=== PATIENT | male | born 1960 | race Caucasian/White ===

== ENCOUNTER 2024-09-18 10:01 | Inpatient (IN) | payer OTHER, SELFPAY ==
[2024-09-18] VITALS (22 sets, daily range): BP systolic 113–152; BP diastolic 62–124; PULSE 109–140; RESP 16–24; TEMP 36.8–38.2; O2SAT 92–98; BMI 35.7; BMI 34.7
--- NOTE | 2024-09-18 10:26 | EX.ED.DYSGE1 ---
HPI History of Present Illness Chief Complaint: Fever Detail of Chief Complaint: Fever and abdominal pain Informant: patient and spouse/S.O. Onset/Context/Timing Current Severity: 08/16 Narrative Narrative: Patient presents to the emergency department with complaint of a fever that started initially 5 days ago. He is just not felt well. Yesterday started with abdominal pain after eating some grapes and some dry cereal. Pain seems to be mostly right upper and right lower quadrant. He has had prior appendectomy. No history of diverticulitis. He called his primary care physician who advised him to be seen in the emergency department for evaluation. He denies urinary symptoms. Patient's had some mild nausea but no vomiting and no diarrhea. He has decreased appetite. PFSH PFSH Home Medications ?Medication ?Instructions ?Recorded ?Last Taken ?Type NK 09/18/24 Unknown History Allergy/AdvReac Type Severity Reaction Status Date / Time No Known Allergies Allergy Verified 09/18/24 10:50 Surgical History (Updated 09/18/24 @ 10:48 by Jacinda Silva) History of appendectomy Social History Smoking Status: Never smoker ROS ROS ED Review of Systems ROS Unobtainable: other Constitutional Constitutional ED: Reports fever(s) and lethargy; Denies chills, sweats or weight loss Eyes Eyes: Denies blurry vision, change in vision or diplopia ENT ENT ED: Denies rhinorrhea or sore throat Cardiovascular Cardiovascular: Denies chest pain, orthopnea or racing heartbeat Respiratory/Chest Respiratory/Chest: Denies cough, dyspnea, dyspnea on exertion, orthopnea or sputum Gastrointestinal Gastrointestinal: Reports abdominal pain and nausea; Denies diarrhea or vomiting Genitourinary Genitourinary ED: Denies dysuria, hematuria or urinary frequency Musculoskeletal Musculoskeletal: Denies arthralgias, back pain, myalgias or neck pain Integumentary Denies abscess, Abrasions or rash Neurologic Neurologic: Denies headache(s) or weakness Psychiatric Psychiatric: Denies anxiety, depression or suicidal thoughts Endocrine Endocrinology: Denies polydipsia, polyphagia or polyuria Hematologic/Lymphatic Hematologic/Lymphatic: Denies easy bleeding, easy bruising or lymphadenopathy Allergic/Immunologic Allergic/Immunologic ED: Denies mouth swelling, tongue swelling or urticaria EXAM Physical Exam Const Vital Signs: 09/18/24 10:02 09/18/24 10:48 09/18/24 12:04 Temperature 99.9 F H 99.7 F H Temperature Source Oral Oral Pulse Rate 124 H 136 H Respiratory Rate 16 19 H Respiratory Effort Normal Respiratory Pattern Normal Blood Pressure 137/105 H 113/62 Blood Pressure Mean 115 79 Pulse Ox 95 93 Oxygen Delivery Method Room Air Room Air 09/18/24 12:11 09/18/24 13:00 09/18/24 13:17 Temperature 99.7 F H Temperature Source Oral Pulse Rate 137 H 140 H 125 H Respiratory Rate 18 20 H Respiratory Effort Respiratory Pattern Blood Pressure 144/98 H 140/73 H Blood Pressure Mean 113 95 Pulse Ox 93 98 Oxygen Delivery Method Room Air 09/18/24 13:53 09/18/24 14:00 09/18/24 14:16 Temperature 100.7 F H 100.7 F H 100.7 F H Temperature Source Oral Oral Pulse Rate 138 H 121 H 121 H Respiratory Rate 24 H 16 16 Respiratory Effort Respiratory Pattern Blood Pressure 144/98 H 136/70 H 136/70 H Blood Pressure Mean 113 92 92 Pulse Ox 93 95 95 Oxygen Delivery Method Room Air 09/18/24 15:00 Temperature Temperature Source Pulse Rate 129 H Respiratory Rate 22 H Respiratory Effort Respiratory Pattern Blood Pressure 136/70 H Blood Pressure Mean 92 Pulse Ox 95 Oxygen Delivery Method Positive well nourished and well developed General Appearance ED: well developed and NAD HEENT Reports TM's clear and moist mucous membranes normocephalic and atraumatic; Negative for trauma or tenderness Tympanic Membrane ED: Yes TM's clear Eyes PERRL and EOMs intact bilaterally General Eye ED: Negative for pale conjunctiva or scleral icterus Neck no lymphadenopathy, supple and no JVD General: Negative for tenderness Chest Wall inspection of chest normal and palpation of chest normal Chest: Negative for tenderness Resp normal respiratory effort and clear to auscultation bilaterally Effort and Inspection: Negative for respiratory distress or pain with movement Auscultation: Negative for rhonchi, wheezes or diminished lung sounds Cardio regular rate, regular rhythm, S1 normal heart sound, S2 normal heart sound and no murmurs Peripheral Pulses: pulses 2+ throughout GI normal to inspection, nondistended, normoactive bowel sounds, soft to palpation, non-distended and no masses GI Narrative: Tenderness palpation over the right upper quadrant with some guarding. He had a positive Jamison sign. Patient also with some diffuse tenderness over the right lower quadrant. No significant tenderness over the left lower quadrant or left upper quadrant. Back/Spine no CVA tenderness and no thoracic nor lumbar tenderness Extremity normal to inspection General Extremety ED: Negative for edema General Extremity: Negative for edema Neuro oriented x3, CN's II-XII intact bilaterally, no sensory deficits noted and gait normal Sensorium / Orientation: awake, alert, oriented to person, oriented to place and oriented to time Motor Exam: strength 5/5 throughout and strength abnormal Psych mental status grossly normal Skin no rashes or lesions noted and no wounds MDM MDM MDM Narrative Medical decision making narrative: Patient presents with fever and now abdominal pain. History of prior appendectomy. In the differential would be gallbladder disease versus other acute infectious process of the abdomen. UTI also in the differential. IV line established. He did not want thing for pain. He will be given normal saline. Will obtain labs and imaging including CT scan with IV contrast to evaluate further. CT scan of the abdomen pelvis was unremarkable. CBC with differential obtained showed white count of 4.8 with hemoglobin 16.0 and platelet count of 190. Chemistries unremarkable. Lactate was normal at 1.0. LFTs showed a slightly elevated AST of 42 with ALT of 44 and alk phos of 80. Lipase was normal at 27. Urinalysis was normal. EKG obtained on arrival for tachycardia showed a atrial fibrillation with ventricular rate of [address] changes. Troponin was normal at 18. Patient was given Cardizem 20 mg IV bolus initially followed by another 25 mg bolus and started on a Cardizem drip. Etiology of his abdominal pain unclear and given location to the right upper quadrant I obtained a ultrasound of the gallbladder which essentially was unremarkable. Blood cultures also were sent and will be pending results. Will discuss case with hospitalist to evaluate patient for admission for the A-fib RVR new onset. Also fever of unknown etiology. Etiology unclear for his abdominal pain. Lab Data Attestation: I reviewed the patient's lab results. Labs: Laboratory Results - last 24 hr 09/18/24 09/18/24 09/18/24 10:30 10:40 10:40 WBC 4.8 RBC 5.61 Hgb 16.0 Hct 46.7 MCV 83.2 MCH 28.5 MCHC 34.3 RDW Std Deviation 40.5 RDW Coeff of Abel 13.3 Plt Count 190 MPV 9.8 Immature Gran % (Auto) 0.400 Neut % (Auto) 66.7 Lymph % (Auto) 14.3 L [place] % (Auto) 17.6 H Eos % (Auto) 0.4 Baso % (Auto) 0.6 Absolute Neuts (auto) 3.2 Absolute Lymphs (auto) 0.69 L Nucleated RBC % 0 Sodium 134 135 Potassium 3.8 Chloride Carbon Dioxide Anion Gap BUN Creatinine Estim Creat Clear Calc Est GFR (MDRD) Non-Af BUN/Creatinine Ratio Glucose Lactic Acid Calcium Total Bilirubin AST ALT Alkaline Phosphatase Troponin T High Sens Troponin T Hi Sens 2 Hr Total Protein Albumin Globulin Albumin/Globulin Ratio Lipase Urine Color Yellow Urine Clarity Clear Urine pH 5.0 Ur Specific [place] 1.020 Urine Protein 100 H Urine Glucose (UA) Normal Urine Ketones 15 H Urine Occult Blood 10 H Urine Nitrite Negative Urine Bilirubin Negative Urine Urobilinogen Normal Ur Leukocyte Esterase 25 H Urine RBC 0 SEEN Urine WBC 0-5 SEEN Ur Squamous Epith Cells 0 SEEN Urine Bacteria 0 SEEN Urine Mucus 0 SEEN 09/18/24 09/18/24 09/18/24 10:40 10:40 10:40 WBC RBC Hgb Hct MCV MCH MCHC RDW Std Deviation RDW Coeff of Abel Plt Count MPV Immature Gran % (Auto) Neut % (Auto) Lymph % (Auto) [place] % (Auto) Eos % (Auto) Baso % (Auto) Absolute Neuts (auto) Absolute Lymphs (auto) Nucleated RBC % Sodium Potassium 3.9 Chloride 99 100 Carbon Dioxide 22.6 21.5 Anion Gap 13 BUN Creatinine Estim Creat Clear Calc Est GFR (MDRD) Non-Af BUN/Creatinine Ratio Glucose Lactic Acid Calcium Total Bilirubin AST ALT Alkaline Phosphatase Troponin T High Sens Troponin T Hi Sens 2 Hr Total Protein Albumin Globulin Albumin/Globulin Ratio Lipase Urine Color Urine Clarity Urine pH Ur Specific [place] Urine Protein Urine Glucose (UA) Urine Ketones Urine Occult Blood Urine Nitrite Urine Bilirubin Urine Urobilinogen Ur Leukocyte Esterase Urine RBC Urine WBC Ur Squamous Epith Cells Urine Bacteria Urine Mucus 09/18/24 09/18/24 09/18/24 10:40 10:40 10:40 WBC RBC Hgb Hct MCV MCH MCHC RDW Std Deviation RDW Coeff of Abel Plt Count MPV Immature Gran % (Auto) Neut % (Auto) Lymph % (Auto) [place] % (Auto) Eos % (Auto) Baso % (Auto) Absolute Neuts (auto) Absolute Lymphs (auto) Nucleated RBC % Sodium Potassium Chloride Carbon Dioxide Anion Gap 14 BUN 16 16 Creatinine 0.88 0.86 Estim Creat Clear Calc 99.05 Est GFR (MDRD) Non-Af BUN/Creatinine Ratio Glucose Lactic Acid Calcium Total Bilirubin AST ALT Alkaline Phosphatase Troponin T High Sens Troponin T Hi Sens 2 Hr Total Protein Albumin Globulin Albumin/Globulin Ratio Lipase Urine Color Urine Clarity Urine pH Ur Specific [place] Urine Protein Urine Glucose (UA) Urine Ketones Urine Occult Blood Urine Nitrite Urine Bilirubin Urine Urobilinogen Ur Leukocyte Esterase Urine RBC Urine WBC Ur Squamous Epith Cells Urine Bacteria Urine Mucus 09/18/24 09/18/24 09/18/24 10:40 10:40 10:40 WBC RBC Hgb Hct MCV MCH MCHC RDW Std Deviation RDW Coeff of Abel Plt Count MPV Immature Gran % (Auto) Neut % (Auto) Lymph % (Auto) [place] % (Auto) Eos % (Auto) Baso % (Auto) Absolute Neuts (auto) Absolute Lymphs (auto) Nucleated RBC % Sodium Potassium Chloride Carbon Dioxide Anion Gap BUN Creatinine Estim Creat Clear Calc 101.35 Est GFR (MDRD) Non-Af 96 96 BUN/Creatinine Ratio 18.1 18.6 Glucose 147 H Lactic Acid Calcium Total Bilirubin AST ALT Alkaline Phosphatase Troponin T High Sens Troponin T Hi Sens 2 Hr Total Protein Albumin Globulin Albumin/Globulin Ratio Lipase Urine Color Urine Clarity Urine pH Ur Specific [place] Urine Protein Urine Glucose (UA) Urine Ketones Urine Occult Blood Urine Nitrite Urine Bilirubin Urine Urobilinogen Ur Leukocyte Esterase Urine RBC Urine WBC Ur Squamous Epith Cells Urine Bacteria Urine Mucus 09/18/24 09/18/24 09/18/24 10:40 10:40 13:15 WBC RBC Hgb Hct MCV MCH MCHC RDW Std Deviation RDW Coeff of Abel Plt Count MPV Immature Gran % (Auto) Neut % (Auto) Lymph % (Auto) [place] % (Auto) Eos % (Auto) Baso % (Auto) Absolute Neuts (auto) Absolute Lymphs (auto) Nucleated RBC % Sodium Potassium Chloride Carbon Dioxide Anion Gap BUN Creatinine Estim Creat Clear Calc Est GFR (MDRD) Non-Af BUN/Creatinine Ratio Glucose 145 H Lactic Acid 1.0 Calcium 8.5 8.5 Total Bilirubin 0.58 AST 42 H ALT 44 Alkaline Phosphatase 80 Troponin T High Sens 18 Troponin T Hi Sens 2 Hr 17 Total Protein 7.2 Albumin 3.9 Globulin 3.3 Albumin/Globulin Ratio 1.2 Lipase 27 Urine Color Urine Clarity Urine pH Ur Specific [place] Urine Protein Urine Glucose (UA) Urine Ketones Urine Occult Blood Urine Nitrite Urine Bilirubin Urine Urobilinogen Ur Leukocyte Esterase Urine RBC Urine WBC Ur Squamous Epith Cells Urine Bacteria Urine Mucus Radiography Diagnostic Testing: Clinical Impression(s) from Imaging Studies Abdomen/Pelvis CT 09/18/24 12:00 IMPRESSION: Fatty infiltration of the liver. Coronary artery calcification. Small right inguinal hernia containing fat. No evidence of ureteral obstruction. OVERALL FINAL ASSESSMENT: . Reading Location: [facility] Gallbladder Ultrasound 09/18/24 12:29 IMPRESSION: Hepatomegaly and fatty infiltration of the liver. Reading Location: [facility] Chest X-Ray 09/18/24 14:33 IMPRESSION: Cardiomegaly. The lungs are clear. Reading Location: [facility] 1 view chest x-ray obtained interpreted by myself no evidence of infiltrate or pneumothorax or acute disease process. Radiology in agreement. EKG Initial EKG: Attestation: I personally reviewed and interpreted this EKG as follows: Comments: Atrial fibrillation with ventricular rate of [address] changes Discharge Plan Dx/Rx/DC Orders Clinical Impression: Atrial fibrillation with RVR, Fever, Abdominal pain Disposition Disposition: Acute Care Hospital [facility]
[2024-09-18 10:36] LABS: Bacteria 0 SEEN /hpf (None Seen); Mucous, Urine 0 SEEN /hpf (<or=2+); Red Blood Cells-Urine 0 SEEN /hpf (0-5); Squamous Epithelial Cells - UA 0 SEEN /hpf (0-5)
[2024-09-18 10:39] LABS: Color, Urine Yellow (Yellow); Glucose, Dipstick Normal (Normal); Ketone-Dipstick 15 mg/dl (Negative); Leukocyte Esterase-Dipstick 25 /ul (Negative); Nitrite-Dipstick Negative (Negative); Occult Blood-Urine 10 /ul (Negative); Protein-Dipstick 100 mg/dl (Negative); Urine Bilirubin Dipstick Negative (Negative); Urine Clarity Clear (Clear); Urine Urobilinogen Normal (Normal)
[2024-09-18] MEDS: 0.9% Normal Saline (1000mL) 1,000 ML 150 ML IV (10:45)
[2024-09-18 10:48] LABS: White Blood Cells 0-5 SEEN /hpf (0-5)
[2024-09-18 11:01] LABS: Absolute Lymphocyte Count 0.69 X10^3/uL (0.83-4.51); Absolute Neutrophil Count 3.2 X10^3/uL (2.0-7.7); Basophil# 0.03 X10^3/uL; Basophil% 0.6 % (0-1); Eosinophil# 0.02 X10^3/uL; Eosinophils% 0.4 % (0-5); Hematocrit 46.7 % (40-54); Lymphocyte # 0.69 X10^3/ul (0.83-4.51); Lymphocyte % 14.3 % (19-41); Mean Corp Hgb Conc 34.3 g/dL (32-36); Mean Corpuscular Hgb 28.5 pg (27.0-32.0); Mean Corpuscular Volume 83.2 fL (80-94); Mean Platelet Vol. 9.8 fl (6.2-12.0); Monocyte# 0.85 X10^3/uL; Monocyte% 17.6 % (0-10); NRBC Flagged by Analyzer 0 % (0-5); Neutrophil # 3.21 X10^3/uL (2.7-7.7); Neutrophil % 66.7 % (47-70); Platelet Count 190 K/mm3 (150-450); RBC Distribution Width CV 13.3 % (11.6-14.6); RBC Distribution Width SD 40.5 fl (35.1-43.9); Red Blood Count 5.61 M/mm3 (4.6-6.2); White Blood Count 4.8 K/mm3 (4.4-11.0)
[2024-09-18] MEDS: dilTIAZem 25 MG/5 ML Vial 20 MG IV BOLUS (11:05)
[2024-09-18 11:29] LABS: ALB/GLOB Ratio 1.2 RATIO (0.9-2.4); AST(SGOT) 42 U/L (<=37); Alanine Aminotransfer ALT/SGPT 44 U/L (<=46); Albumin, Serum 3.9 g/dL (3.4-4.8); Alkaline Phosphatase 80 U/L (40-129); Anion Gap 13 (5-15); BUN 16 mg/dL (4-19); BUN/Creat Ratio 18.1 RATIO (10-20); Calcium,Total 8.5 mg/dL (7.6-11.0); Carbon Dioxide 22.6 mmol/L (21.0-32.0); Chloride 99 mmol/L (98-108); Creatinine, Serum 0.88 mg/dL (0.70-1.20); EST Glomerular Filtration Rate 96 (>60); Estimated Creatinine Clearance 99.05 ml/min (50-250); Globulin 3.3 g/dL (2.2-4.2); Glucose 147 mg/dL (70-99); Lipase 27 U/L (13-75); Potassium 3.8 mmol/L (3.3-5.1); Protein, Total 7.2 g/dL (5.9-8.4); Sodium Level 134 mmol/L (133-145); Total Bilirubin 0.58 mg/dL (0.00-1.30)
--- NOTE | 2024-09-18 12:00 | CT_ITS ---
PROCEDURE: ABDOMEN/PELVIS WITH CONTRAST 09/18/2024 REASON FOR EXAM: ABDOMINAL PAIN, RLQ AND RUQ TECHNIQUE: Abdomen and pelvis CT with intravenous contrast. Coronal and Sagittal reconstruction series were provided. PATIENT PREPARATION: Per protocol ORAL CONTRAST TYPE: Gastrografin. CONTRAST: Isovue-300 VOLUME: 100 mL One or more dose reduction techniques were used (e.g., Automated exposure control, adjustment of the mA and/or kV according to patient size, use of iterative reconstruction technique. RADIATION DOSE SUMMARY: CTDlvol: 20 mGy DLP: 1328.49 mGycm COMPARISON: None FINDINGS: Lung bases: Mild dependent atelectasis. Coronary artery calcification. Minimal anterior pericardial thickening. Liver: Diffuse fatty infiltration. Gallbladder: Unremarkable. Spleen: Normal size. Pancreas: Normal size without evidence of mass surrounding inflammation or ductal dilation. Adrenals: Unremarkable Kidneys: Normal renal sizes. No hydronephrosis. Bladder: Unremarkable. Prostatic calcification. Small right inguinal hernia containing fat. Bowel: Colonic diverticulosis without diverticulitis. Appendix: Unremarkable. Lymph nodes: Tiny retroperitoneal lymph nodes. Small umbilical hernia containing fat. Vasculature: Mild diffuse atherosclerotic calcifications are noted. Peritoneum / Retroperitoneum: No evidence of ascites. Bones: Disc space narrowing and degeneration with subchondral sclerosis at the L2-L3 level. CT/Abdomen/Pelvis WITH Contrast IMPRESSION: Fatty infiltration of the liver. Coronary artery calcification. Small right inguinal hernia containing fat. No evidence of ureteral obstructio n. OVERALL FINAL ASSESSMENT: . Reading Location: [place] [id number]
[2024-09-18] MEDS: dilTIAZem 25 MG/5 ML Vial IV BOLUS (12:12)
--- NOTE | 2024-09-18 12:29 | US_ITS ---
PROCEDURE: GALLBLADDER 09/18/2024 REASON FOR EXAM: ABDOMINAL PAIN , FEVER COMPARISON: Prior CT scan done earlier in the day. FINDINGS: Liver: Diffusely echogenic suggesting fatty infiltration. Hepatomegaly. The liver measures 19.3 cm. Gallbladder: No stones, sludge, wall thickening or tenderness. Common bile duct: Normal measuring 3.8 mm . Pancreas: Normal Other: Visualized portions of the right kidney are unremarkable. No right upper quadrant ascites. US/Gallbladder IMPRESSION: Hepatomegaly and fatty infiltration of the liver. Reading Location: [place] [id number]
[2024-09-18 12:58] LABS: Anion Gap 14 (5-15); BUN 16 mg/dL (4-19); BUN/Creat Ratio 18.6 RATIO (10-20); Calcium,Total 8.5 mg/dL (7.6-11.0); Carbon Dioxide 21.5 mmol/L (21.0-32.0); Chloride 100 mmol/L (98-108); Creatinine, Serum 0.86 mg/dL (0.70-1.20); EST Glomerular Filtration Rate 96 (>60); Estimated Creatinine Clearance 101.35 ml/min (50-250); Glucose 145 mg/dL (70-99); Potassium 3.9 mmol/L (3.3-5.1); Sodium Level 135 mmol/L (133-145); Troponin T High Sensitivity 18 ng/L (<=22)
[2024-09-18] MEDS: Diltiazem 125 MG in Dextrose 5%-Water (100mL Bag) 100 ML IV (13:17)
[2024-09-18 13:46] LABS: Troponin T High Sens 2 HR 17 ng/L (<=22)
--- NOTE | 2024-09-18 13:54 | PCM.HP.STD ---
HPI - General General Date of Admission: 09/18/24 Date of Service: 09/18/24 Chief Complaint: Fever/chills and abdominal pain HPI Narrative GISELA KNOX, is a 64 M who presented to [facility] ED on 09/18/2024 with fever/chills and abdominal pain. Patient has no significant past medical history. 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 Noted that he initially developed fevers and chills about 4 to 5 days ago. Since then he generally has not felt very well. Yesterday he began to have abdominal pain after eating. He noted that the pain was somewhat localized to his right upper quadrant but was also fairly diffuse. Does have history of prior appendectomy. Called his PCP who recommended coming to the ED for further evaluation. In the ED he was found to be in A-fib with RVR with heart rate in the 130s to 140s. He denied any palpitations. No prior history of A-fib. Was also found to be febrile to 100.7 F. CBC and BMP were fairly benign. BNP was elevated at 2493. Troponins negative x 2. CT abdomen pelvis showed a small right inguinal hernia with no evidence of obstruction, fatty infiltration of the liver, no other concerning findings. Gallbladder ultrasound was negative. Chest x-ray showed cardiomegaly but was otherwise unremarkable. He was breathing comfortably on room air at rest with saturations in the mid 90s. Denied any lower extremity swelling. Given these findings, he was given a bolus of IV Cardizem and started on Cardizem drip. Hospitalist was then contacted for admission. I saw the patient at bedside in the ED, is present. Patient was mildly fatigued and flushed appearing but otherwise laying back comfortably in bed, conversing normally and in no acute distress. Patient is very pleasant and mentally sharp. Notes that he feels about the same as when he came into the ED. Continues to report mild abdominal pain and feeling hot. Continues to deny palpitations. He did note that he had a loose bowel movement shortly before coming to the ED but otherwise has been having normal bowel movements. No other acute concerns at this time. PFSH Home Medications ?Medication ?Instructions ?Recorded ?Last Taken ?Type NK 09/18/24 Unknown History Allergy/AdvReac Type Severity Reaction Status Date / Time No Known Allergies Allergy Verified 09/18/24 10:50 Surgical History (Updated 09/18/24 @ 10:48 by Jacinda Silva) History of appendectomy Social History Smoking Status: Never smoker ROS Constitutional Constitutional: Reports chills, fatigue and fever(s); Denies weakness Eyes Eyes: Denies change in vision Cardiovascular Cardiovascular: Denies chest pain, dyspnea on exertion, edema, lightheadedness or palpitations Respiratory/Chest Respiratory/Chest: Denies cough, productive cough, shortness of breath at rest, shortness of breath with exertion or wheezing Gastrointestinal Gastrointestinal: Reports abdominal pain and diarrhea; Denies constipation, nausea or vomiting Genitourinary Genitourinary: Denies dysuria Musculoskeletal Musculoskeletal: Denies arthralgias or myalgias Neurologic Neurologic: Denies dizziness, focal weakness or headache(s) Vital Signs Vital Signs Vital Signs: 09/18/24 10:02 09/18/24 10:48 09/18/24 12:04 Temperature 99.9 F H 99.7 F H Temperature Source Oral Oral Pulse Rate 124 H 136 H Respiratory Rate 16 19 H Respiratory Effort Normal Respiratory Pattern Normal Blood Pressure 137/105 H 113/62 Blood Pressure Mean 115 79 Pulse Ox 95 93 Oxygen Delivery Method Room Air Room Air 09/18/24 12:11 09/18/24 13:00 09/18/24 13:17 Temperature 99.7 F H Temperature Source Oral Pulse Rate 137 H 140 H 125 H Respiratory Rate 18 20 H Respiratory Effort Respiratory Pattern Blood Pressure 144/98 H 140/73 H Blood Pressure Mean 113 95 Pulse Ox 93 98 Oxygen Delivery Method Room Air 09/18/24 13:53 Temperature 100.7 F H Temperature Source Oral Pulse Rate 138 H Respiratory Rate 24 H Respiratory Effort Respiratory Pattern Blood Pressure 144/98 H Blood Pressure Mean 113 Pulse Ox 93 Oxygen Delivery Method Weight Weight: 106.594 kg Body Mass Index (BMI) 35.7 Physical Exam Const alert, oriented x3 and no apparent distress Constitutional Narrative: Pleasant upper middle-aged male, class II obesity, mild fatigued and flushed appearing, otherwise laying back comfortably in bed, conversing normally, in no acute distress. General Appearance: cooperative and comfortable HEENT normocephalic, head/scalp atraumatic, hearing grossly normal bilaterally, nasal mucous membranes and turbinates normal and moist oral mucous membranes Eyes PERRL, EOMs intact bilaterally and conjunctivae normal Neck full ROM Chest inspection of chest normal Resp normal respiratory effort, normal air movement, no use of accessory muscles and clear to auscultation bilaterally Cardio no murmurs and peripheral pulses 2+ throughout Cardio Narrative: A-fib with RVR. GI GI Narrative: Mild diffuse tenderness to palpation but abdomen otherwise soft and nondistended. Back/Spine normal ROM Extremity normal to inspection, full ROM and no pedal edema Skin no rashes or lesions noted Psych mental status grossly normal Results Lab / Micro Data 09/18/24 10:40 09/18/24 10:40 Labs: Laboratory Results - last 24 hr 09/18/24 10:30: Urine Color Yellow, Urine Clarity Clear, Urine pH 5.0, Ur Specific Dawson 1.020, Urine Protein 100 H, Urine Glucose (UA) Normal, Urine Ketones 15 H, Urine Occult Blood 10 H, Urine Nitrite Negative, Urine Bilirubin Negative, Urine Urobilinogen Normal, Ur Leukocyte Esterase 25 H, Urine RBC 0 SEEN, Urine WBC 0-5 SEEN, Ur Squamous Epith Cells 0 SEEN, Urine Bacteria 0 SEEN, Urine Mucus 0 SEEN 09/18/24 10:40: WBC 4.8, RBC 5.61, Hgb 16.0, Hct 46.7, MCV 83.2, MCH 28.5, MCHC 34.3, RDW Std Deviation 40.5, RDW Coeff of Abel 13.3, Plt Count 190, MPV 9.8, Immature Gran % (Auto) 0.400, Neut % (Auto) 66.7, Lymph % (Auto) 14.3 L, [place] % (Auto) 17.6 H, Eos % (Auto) 0.4, Baso % (Auto) 0.6, Absolute Neuts (auto) 3.2, Absolute Lymphs (auto) 0.69 L, Nucleated RBC % 0, Sodium 134 09/18/24 10:40: Sodium 135, Potassium 3.8 09/18/24 10:40: Potassium 3.9, Chloride 99 09/18/24 10:40: Chloride 100, Carbon Dioxide 22.6 09/18/24 10:40: Carbon Dioxide 21.5, Anion Gap 13 09/18/24 10:40: Anion Gap 14, BUN 16 09/18/24 10:40: BUN 16, Creatinine 0.88 09/18/24 10:40: Creatinine 0.86, Estim Creat Clear Calc 99.05 09/18/24 10:40: Estim Creat Clear Calc 101.35, Est GFR (MDRD) Non-Af 96 09/18/24 10:40: Est GFR (MDRD) Non-Af 96, BUN/Creatinine Ratio 18.1 09/18/24 10:40: BUN/Creatinine Ratio 18.6, Glucose 147 H 09/18/24 10:40: Glucose 145 H, Lactic Acid 1.0, Calcium 8.5 09/18/24 10:40: Calcium 8.5, Total Bilirubin 0.58, AST 42 H, ALT 44, Alkaline Phosphatase 80, Troponin T High Sens 18, Total Protein 7.2, Albumin 3.9, Globulin 3.3, Albumin/Globulin Ratio 1.2, Lipase 27 09/18/24 13:15: Troponin T Hi Sens 2 Hr 17 Micro: Microbiology 09/18/24 12:21 Mucosa - Nose SARS-CoV-2, Influenza & RSV (PCR) - Final Imaging Radiology Impression Abdomen/Pelvis CT 09/18/24 12:00 IMPRESSION: Fatty infiltration of the liver. Coronary artery calcification. Small right inguinal hernia containing fat. No evidence of ureteral obstruction. OVERALL FINAL ASSESSMENT: . Reading Location: [facility] Gallbladder Ultrasound 09/18/24 12:29 IMPRESSION: Hepatomegaly and fatty infiltration of the liver. Reading Location: [facility] Assessment & Plan Assessment/Plan (1) Fever: (2) Abdominal pain: (3) Atrial fibrillation with RVR: PLAN: Plan Patient is a 64-year-old male who presented to [facility] ED on 09/18/2024 with fever/chills and abdominal pain. 1. Fever of unknown origin with abdominal pain ? Admit under inpatient status to PCU. Patient with low-grade fever to 100.7 F on admit and reported fevers at home. WBC count normal, lactate normal, no other concerning lab findings. Unclear source of infection at this time. Chest x-ray unremarkable. CT abdomen pelvis with no concerning findings. UA unremarkable. Has mild diffuse abdominal pain for unclear reason. Did note one episode of loose stool on day of admission but no episodes since then. Blood cultures ordered. Respiratory PCR panel sent. Stool PCR sample ordered. Will treat with broad-spectrum IV antibiotics for now. Follow-up infectious workup. 2. New onset A-fib with RVR with concern for new onset heart failure ? In new onset A-fib with RVR on admit with rate in the 130s to 140s. BNP elevated at 2493. Chest x-ray showed cardiomegaly but no pleural effusions or significant pulmonary edema. Given bolus of IV Cardizem and started on Cardizem drip in the ED without much improvement. Will start p.o. Lopressor 25 mg twice daily. Given 1 dose of IV digoxin in the ED, will monitor response. [id number] score of only 2 for age and diabetes history. However, given patient does not have palpitations and elevated BNP I have concern that he has been in A-fib for some time without knowing so we will anticoagulate at this time. Given dose of therapeutic Lovenox in the ED and will start on Eliquis. Echo ordered. Low threshold to consult cardiology if needed. 3. Class II obesity ? BMI 35 on admit. Complicates hospital course, care and prognosis. 4. New onset mild type 2 diabetes mellitus ? A1c 6.9% on admit. Glucose 145. Will hold on glucose checks and insulin orders for now. Will need close outpatient follow-up. DVT prophylaxis: Not indicated, on Eliquis CODE STATUS: Full code, verified Expected disposition: Home, TBD Total clinical time spent by myself addressing the patient's medical issues, reviewing all the data, and collaborating with patient's care team: 75 minutes. Charges/Coding Visit Charges Inpatient E&M: 77738 Init Hosp L3
--- NOTE | 2024-09-18 13:58 | ECHOCS_ITS ---
Reason For Study Reason For Study: Afib, Aflutter Procedure This was a 2D Doppler, Color Flow transthoracic echocardiogram. Contrast injection was performed. Exam performed portable in patient room. Left Ventricle Left ventricle appears dilated. Left ventricular systolic function 35% This is limited due to atrial fibrillation. Right Ventricle Normal right ventricle. Normal systolic function. Atria The left atrium is dilated. Normal right atrium. Mitral Valve The mitral valve is structurally normal. No prolapse or stenosis seen. Mild (1+) mitral valve insufficiency. Tricuspid Valve Mild tricuspid valve insufficiency. Pulmonary artery systolic pressure is 939 mmHg. Aortic Valve Aortic valve is tricuspid. There is no aortic stenosis. Aortic valve is mildly calcified. Pulmonic Valve Trivial pulmonic valve insufficiency. Great Vessels Aortic root dimensions within normal limits. IVC measures 1.9 cm. Pericardium/Pleural No pericardial effusion. Medication Diluted definity 3ml given slow IV push to enhance endocardial definition. MMode/2D Measurements & Calculations LVIDd: 5.4 cm IVSd: 1.2 cm Ao root diam: 3.4 cm LVIDs: 4.3 cm LVPWd: 1.2 cm FS: 20.3 % LAV(MOD-bp): 52.6 ml LVAd ap4: 33.6 cm2 LVAd ap2: 34.2 cm2 LAV(MOD-bp) Indexed: 24.0 ml/m2 LVLd ap4: 7.8 cm LVLd ap2: 8.1 cm LAV(MOD-sp2): 48.1 ml EDV(MOD-sp4): 120.0 ml EDV(MOD-sp2): 119.9 ml LAV(MOD-sp4): 57.9 ml EDV(sp4-el): 122.3 ml EDV(sp2-el): 122.6 ml LVAs ap4: 25.8 cm2 LVAs ap2: 26.8 cm2 LVLs ap4: 7.3 cm LVLs ap2: 7.5 cm ESV(MOD-sp4): 77.4 ml ESV(MOD-sp2): 80.9 ml ESV(sp4-el): 77.5 ml ESV(sp2-el): 81.6 ml EF(MOD-sp4): 35.5 % EF(MOD-sp2): 32.6 % EF(sp4-el): 36.7 % SV(MOD-sp4): 42.7 ml SV(MOD-sp2): 39.0 ml SV(sp4-el): 44.9 ml SI(MOD-sp4): 19.5 ml/m2 SI(MOD-sp2): 17.8 ml/m2 LA A4 area: 20.4 cm2 LA dimension(2D): 4.6 cm RA A4 area: 11.7 cm2 TAPSE: 2.5 cm Doppler Measurements & Calculations MV E max david: 115.6 cm/sec Lat Peak E' David: 13.4 cm/sec Med Peak E' David: 14.4 cm/sec E/E' lat: 8.6 E/E' med: 8.1 Ao V2 max: 149.6 cm/sec LV V1 max: 116.9 cm/sec PA V2 max: 94.9 cm/sec Ao max P.3 mmHg LV V1 max P.6 mmHg Ao V2 mean: 109.7 cm/sec LV V1 mean P.6 mmHg Ao mean P.4 mmHg LV V1 mean: 91.7 cm/sec Ao V2 VTI: 19.5 cm LV V1 VTI: 17.1 cm AV (velocity ratio): 0.88 TR max david: 281.2 cm/sec TR max P.6 mmHg ECHO/Echo Complete W/ Contrast Interpretation Summary Left ventricular systolic function 35% This is limited due to atrial fibrillation Left ventricle appears dilated The left atrium is dilated Mild (1+) mitral valve insufficiency. Mild tricuspid valve insufficiency. Aortic valve is mildly calcified Ordering Physician: James Crum Referring Physician: Andi Blanton Performed By: Gaby DAVIS RDCS, Isabel and Student
--- NOTE | 2024-09-18 14:33 | RAD_ITS ---
PROCEDURE: CHEST 1 VIEW (PORTABLE) 09/18/2024 REASON FOR EXAM: FEVER TECHNIQUE: Frontal view of the chest. COMPARISON: None FINDINGS: Hardware: EKG electrodes are seen. Heart: Heart size is moderately enlarged. Unfolding of the thoracic aorta. Lungs: The lungs are clear. Bones: Degenerative changes are identified within the thoracic spine. Other: RAD/Chest 1 View (Portable) IMPRESSION: Cardiomegaly. The lungs are clear. Reading Location: [place] [id number]
[2024-09-18 15:23] LABS: Hemoglobin A1c 6.9 % (<=5.6)
[2024-09-18 15:46] LABS: Troponin T High Sens 4 HR 16 ng/L (<=22)
[2024-09-18 15:59] LABS: Magnesium 2.1 mg/dL (1.5-2.2); Phosphorus 2.6 mg/dL (2.7-4.5); Pro- Brain NATRIURETIC PEPTIDE 2493 pg/mL (<=900)
[2024-09-18] MEDS: Vancomycin HCl 2,000 MG in 0.9% Normal Saline (500mL Bag) 500 ML 250 MG IV (19:59)
[2024-09-18] MEDS: Metoprolol Tartrate 25 MG Tablet PO ×2 (20:06→23:07)
[2024-09-18] MEDS: APIXABAN 5 MG TABLET PO (20:08)
--- NOTE | 2024-09-18 20:35 | PCM.RX.CS ---
Consult Antibiotic Management Pharmacy has been consulted to manage selected antibiotic: Vancomycin Type of Intervention Type of Consult: New start Suspected Infection Suspected Infection: Sepsis Prior Doses of Antibiotics Prior Doses of Antibiotics Received/Current Regimen: Vancomycin 2000 mg IV x 1 given 09/18/24 @ 1959 Labs Labs: Sodium 134 mmol/L (133-145) 09/18/24 10:40 Sodium 135 mmol/L (133-145) 09/18/24 10:40 Potassium 3.8 mmol/L (3.3-5.1) 09/18/24 10:40 Potassium 3.9 mmol/L (3.3-5.1) 09/18/24 10:40 Chloride 99 mmol/L (98-108) 09/18/24 10:40 Chloride 100 mmol/L (98-108) 09/18/24 10:40 Carbon Dioxide 21.5 mmol/L (21.0-32.0) 09/18/24 10:40 Carbon Dioxide 22.6 mmol/L (21.0-32.0) 09/18/24 10:40 Anion Gap 13 (5-15) 09/18/24 10:40 Anion Gap 14 (5-15) 09/18/24 10:40 BUN 16 mg/dL (4-19) 09/18/24 10:40 BUN 16 mg/dL (4-19) 09/18/24 10:40 Creatinine 0.86 mg/dL (0.70-1.20) 09/18/24 10:40 Creatinine 0.88 mg/dL (0.70-1.20) 09/18/24 10:40 Est GFR (MDRD) Non-Af 96 (>60) 09/18/24 10:40 Est GFR (MDRD) Non-Af 96 (>60) 09/18/24 10:40 BUN/Creatinine Ratio 18.1 RATIO (10-20) 09/18/24 10:40 BUN/Creatinine Ratio 18.6 RATIO (10-20) 09/18/24 10:40 Glucose 145 mg/dL (70-99) H 09/18/24 10:40 Glucose 147 mg/dL (70-99) H 09/18/24 10:40 Microbiology Microbiology: Microbiology 09/18/24 12:21 Mucosa - Nose SARS-CoV-2, Influenza & RSV (PCR) - Final Dosing Weight Weight used for dosin kg Estimated Creatinine Clearance Estimated Creatinine Clearance: ~ 101 Goal Trough Goal Trough: 15-20 mcg/mL Pharmacy Plan for Drug Dosing Pharmacy Plan for Drug Dosing: Vancomycin 2000 mg IV x 1 followed by 1250 mg Q8H. Pharmacy Service will continue to monitor and adjust dosing as required. Follow-Up Labs Follow-Up Labs: Trough: Vancomycin Date/Time Labs Ordered Labs to be done on [date and time ordered]: 09/19/24 @ 1930
[2024-09-18] MEDS: Furosemide 40 MG/4 ML Vial IV (21:10)
[2024-09-18] MEDS: Piperacil/Tazobactam 3.375 GM in 0.9% Normal Saline (50mL MB+) 50 ML IV (21:11)
[2024-09-18] MEDS: 0.9% Normal Saline (250mL Bag) 250 ML 15 ML IV (21:11)
[2024-09-18] MEDS: Digoxin 250 MCG/ML Ampul IV (21:16)
[2024-09-18] MEDS: 0.9% Saline Lock 10 ML Syringe IV (21:19)
[2024-09-18] MEDS: Diltiazem 125 MG in Dextrose 5%-Water (100mL Bag) 100 ML 15 MG IV (23:05)
[2024-09-19] VITALS (31 sets, daily range): BP systolic 98–146; BP diastolic 58–95; PULSE 101–130; RESP 18–28; TEMP 37.1–37.2; O2SAT 88–96; BMI 34.8
[2024-09-19] MEDS: Vancomycin HCl 1,250 MG in 0.9% Normal Saline (250mL Bag) 250 ML 167 MG IV ×3 (04:11→20:57)
[2024-09-19 05:08] LABS: Hematocrit 41.8 % (40-54); Hemoglobin 14.3 g/dL (13.0-16.5); Mean Corp Hgb Conc 34.2 g/dL (32-36); Mean Corpuscular Hgb 28.4 pg (27.0-32.0); Mean Corpuscular Volume 83.1 fL (80-94); Mean Platelet Vol. 9.6 fl (6.2-12.0); Platelet Count 192 K/mm3 (150-450); RBC Distribution Width CV 13.4 % (11.6-14.6); RBC Distribution Width SD 40.7 fl (35.1-43.9); Red Blood Count 5.03 M/mm3 (4.6-6.2); White Blood Count 7.8 K/mm3 (4.4-11.0)
[2024-09-19 05:49] LABS: Anion Gap 12 (5-15); BUN 15 mg/dL (4-19); BUN/Creat Ratio 18.2 RATIO (10-20); Calcium,Total 8.1 mg/dL (7.6-11.0); Carbon Dioxide 23.1 mmol/L (21.0-32.0); Chloride 97 mmol/L (98-108); Creatinine, Serum 0.82 mg/dL (0.70-1.20); EST Glomerular Filtration Rate 98 (>60); Estimated Creatinine Clearance 108.26 ml/min (50-250); Glucose 147 mg/dL (70-99); Potassium 3.7 mmol/L (3.3-5.1); Sodium Level 132 mmol/L (133-145)
[2024-09-19] MEDS: Diltiazem 125 MG in Dextrose 5%-Water (100mL Bag) 100 ML 15 MG IV ×3 (06:27→23:17)
[2024-09-19] MEDS: APIXABAN 5 MG TABLET PO ×2 (08:38→21:06)
[2024-09-19] MEDS: Metoprolol Tartrate 25 MG Tablet PO ×2 (08:38→21:06)
--- NOTE | 2024-09-19 10:29 | CASEMGMT ---
SW was informed by Pam from [facility] that patient is over income for Medicaid. Per patient if medical things are too expensive they will talk with their mormon[employer] fund. Ira Hartley [employer]
--- NOTE | 2024-09-19 11:46 | CASEMGMT ---
RN?CM?CLAIMS CORRESPONDENCE CLERK?CM?to room to meet with patient for initial transition planning/care coordination?assessment.?RN?CM?introduced self and role at [facility].? Pt voices understanding and consents to?assessment?at this time.? Pt resting in bed in no distress at this time.? @ bedside. Pt is A/O at this time and answers all questions appropriately.?? Care providers, pharmacy, and demographics verified/updated at this time. PCP: Dr Blanton Specialists: none Preferred Pharmacy: [facility]. Insurance: Self pay ER deposit. Prescription Benefit:?None. Pt to dc home on Eliquis. Provided w/30-day free trial offer card and made aware this is a aiij-do-d-lifetime use card. Also made aware of Good Rx card. Educated on the card & made aware can get info/card # on-line. Pt states has [email or web address], if needed, but he is not sure if they help to cover cost of Rx's. Pt states, if not, he can afford to pay for refills. LNOK: Juliana Living Arrangements: Lives w/ in 2-story home w/2 steps to enter. [employer]. Independent @ baseline. Transportation:?Pt and both drive. DME: ? Denies using any DME and denies needs.? They do not have a pulse ox. Recommended to get one and made aware of locations this can be purchased. HHC/SNF: No hx of either. No needs identified. Pt wishes to return home and states has no concerns with going home at time of discharge. ?CM?to follow for any further discharge planning/needs.? Pt and voice no further concerns/needs at this time.? Advised them to ask for?CM?if any further questions/concerns/needs arise.? They voice understanding. PLAN:?Home on anti-coag. Pt has been provided w/Eliquis 30-day free trial offer card. ? Elisa BSN?RN?CM
[2024-09-19] MEDS: Piperacil/Tazobactam 3.375 GM in 0.9% Normal Saline (50mL MB+) 50 ML IV ×2 (13:48→22:00)
--- NOTE | 2024-09-19 13:49 | PCM.CONS.C ---
Assessment & Plan Assessment/Plan (1) Abdominal pain: (2) Atrial fibrillation with RVR: (3) Fever: (4) Diabetes: PLAN: Plan 1. A-fib with RVR this appears to be a new diagnosis for him. Currently [id number] score is 2 for age and diabetes. He will benefit from long-term anticoagulation for stroke prevention. He has significant he is currently on Lovenox. We should torres check Lovenox and Xarelto. He would also benefit from a sleep study as an outpatient to rule out sleep apnea. Will obtain echocardiogram to rule out any significant structural abnormalities further recommendations pending findings. Appears to be on a max dose of Cardizem at this time. Add digoxin IV 0.25 x1 for now with the goal to taper off Cardizem drip and uptitrate p.o. metoprolol.. If he remains in A-fib on Sunday will plan for LISA/DCCV. cont anticoagulation 2. Diabetes mellitus?per primary team 3. Abdominal pain per primary team HPI Consult Data Date of Consult: 09/19/24 HPI Narrative Reason for Consultation: afib HPI Narrative: GISELA KNOX, is a 64 M who presents presented with abdominal pain. He reports that for the past few days he has not been feeling well. Then proceeded to have abdominal pains in his lower right quadrant which were severe at the time so he came to the ER for further evaluation. On arrival to the ER he was found to be in A-fib with RVR. Reports that also after he came to the hospital he started having diarrhea. He denies any bloody stools reports low-grade fever and chills. He denies any chest pain, denies loss of consciousness continent, denies orthopnea, denies dyspnea reports slight improvement with his symptoms since yesterday. He has been started on a Cardizem drip and digoxin and also on Lovenox for stroke prevention and antibiotics. At this time he has no new complaints. [facility], [facility] Home Medications ?Medication ?Instructions ?Recorded ?Last Taken ?Type aspirin 81 mg tablet,delayed 81 mg PO DAILY preventative 09/18/24 Unknown History release (Adult Low Dose Aspirin) Allergy/AdvReac Type Severity Reaction Status Date / Time No Known Allergies Allergy Verified 09/18/24 10:50 Surgical History History of appendectomy Social History (Updated 09/18/24 @ 18:52 by Kirstin Ohara) household members: spouse Smoking Status: Never smoker ROS ROS Narrative As in the HPI Physical Exam Narrative General?alert oriented HEENT- normal extraocular movements Neck supple no JVD Cardiovascular- normal S1-S2, no murmurs Pulmonary- clear to auscultation bilaterally Abdomen- soft to palpation, normal sounds Extremities- no edema Musculoskeletal- no tenderness no swelling Neurological -alert oriented Psych -normal affect Risk Stratification Risk Stratification Applicable: No Objective Data Vital Signs: Vital Signs Temp Pulse Resp BP Pulse Ox O2 Del Method O2 Flow Rate 99.0 F 120 H 20 H 122/65 H 94 Nasal Cannula 2 09/19/24 06:09/19/24 12:00 09/19/24 12:00 09/19/24 12:00 09/19/24 12:00 09/19/24 12:00 09/19/24 12:00 Oxygen Flow Rate (L/min) 2 Oxygen Delivery Method Nasal Cannula Weight: 235 lb 14.314 oz Body Mass Index (BMI) 34.8 Intake & Output: Intake and Output for Last 24 Hours 09/17/24 09/18/24 09/19/24 23:59 23:59 23:59 Intake Total 1665.00 / 1878.75 1458.75 / 1458.75 Output Total 1100 / 1100 Balance 1665.00 / 1378.75 358.75 / 358.75 Lab / Micro Data 09/19/24 04:39 09/19/24 04:39 Labs: Laboratory Results - last 24 hr 09/18/24 10:40: Hemoglobin A1c 6.9 H 09/18/24 15:00: Phosphorus 2.6 L, Magnesium 2.1, Troponin T Hi Sens 4Hr 16, NT pro BNP II 2493 H 09/19/24 04:39: WBC 7.8, RBC 5.03, Hgb 14.3, Hct 41.8, MCV 83.1, MCH 28.4, MCHC 34.2, RDW Std Deviation 40.7, RDW Coeff of Abel 13.4, Plt Count 192, MPV 9.6, Sodium 132 L, Potassium 3.7, Chloride 97 L, Carbon Dioxide 23.1, Anion Gap 12, BUN 15, Creatinine 0.82, Estim Creat Clear Calc 108.26, Est GFR (MDRD) Non-Af 98, BUN/Creatinine Ratio 18.2, Glucose 147 H, Calcium 8.1 Micro: Microbiology 09/18/24 21:30 Stool Enteric Bacteriology - Final 09/18/24 12:21 Mucosa - Nose SARS-CoV-2, Influenza & RSV (PCR) - Final Cardiology Labs/Tests 09/18/24 10:40: Hemoglobin A1c 6.9 H 09/18/24 15:00: Phosphorus 2.6 L, Magnesium 2.1 09/19/24 04:39: WBC 7.8, RBC 5.03, Hgb 14.3, Hct 41.8, MCV 83.1, MCH 28.4, MCHC 34.2, Plt Count 192, MPV 9.6, Sodium 132 L, Potassium 3.7, Chloride 97 L, Carbon Dioxide 23.1, Anion Gap 12, BUN 15, Creatinine 0.82, Est GFR (MDRD) Non-Af 98, BUN/Creatinine Ratio 18.2, Glucose 147 H, Calcium 8.1 Rhythm: EKG: ECHO: Stress Test: Cardiac Cath: PCI: CT Surgery: Holter monitor: EPS: PPM: CXR: Chest CT Scan: Radiography Diagnostic Testing: Radiology Impression Chest X-Ray 09/18/24 14:33 IMPRESSION: Cardiomegaly. The lungs are clear. Reading Location: [place] [id number]
[2024-09-19] MEDS: Digoxin 250 MCG/ML Ampul IV (14:54)
[2024-09-19] MEDS: 0.9% Saline Lock 10 ML Syringe IV (14:57)
[2024-09-19] MEDS: Acetaminophen 325 MG Tablet 650 MG PO (15:09)
--- NOTE | 2024-09-19 15:32 | PN.HOSP_ITS ---
Reason for Visit Reason for Visit: Diagnoses Type 2 diabetes mellitus without complications (09/18/24) Unspecified atrial fibrillation (09/18/24) Unspecified abdominal pain (09/18/24) Fever, unspecified (09/18/24) Subjective Subjective Saw patient at bedside this morning, present. Patient appeared similar this morning to yesterday. Remained mildly fatigued but otherwise was laying back comfortably in bed and in no acute distress. He remained in A-fib with RVR with heart rate mildly improved to the 110s. Continued to report mild abdominal pain with another loose bowel movement overnight, similar to yesterday. No other new concerns this morning. Objective Data Objective Data Vital Signs: Vital Signs Temp Pulse Resp BP Pulse Ox O2 Del Method O2 Flow Rate 99.0 F 112 H 20 H 122/65 H 94 Nasal Cannula 2 09/19/24 06:09/19/24 14:54 09/19/24 12:00 09/19/24 12:00 09/19/24 12:00 09/19/24 12:00 09/19/24 12:00 Oxygen Flow Rate (L/min) 2 Oxygen Delivery Method Nasal Cannula Weight: 107 kg Body Mass Index (BMI) 34.8 Intake & Output: Intake and Output for Last 24 Hours 09/17/24 09/18/24 09/19/24 23:59 23:59 23:59 Intake Total 1665.00 / 1878.75 1500.50 / 1500.50 Output Total 1100 / 1100 Balance 1665.00 / 1378.75 400.50 / 400.50 Lab / Micro Data 09/19/24 04:39 09/19/24 04:39 Labs: Laboratory Results - last 24 hr 09/18/24 15:00: Phosphorus 2.6 L, Magnesium 2.1, Troponin T Hi Sens 4Hr 16, NT pro BNP II 2493 H 09/19/24 04:39: WBC 7.8, RBC 5.03, Hgb 14.3, Hct 41.8, MCV 83.1, MCH 28.4, MCHC 34.2, RDW Std Deviation 40.7, RDW Coeff of Abel 13.4, Plt Count 192, MPV 9.6, S odium 132 L, Potassium 3.7, Chloride 97 L, Carbon Dioxide 23.1, Anion Gap 12, BUN 15, Creatinine 0.82, Estim Creat Clear Calc 108.26, Est GFR (MDRD) Non-Af 98, BUN/Creatinine Ratio 18.2, Glucose 147 H, Calcium 8.1 Micro: Microbiology 09/18/24 21:30 Stool Enteric Bacteriology - Final 09/18/24 12:21 Mucosa - Nose SARS-CoV-2, Influenza & RSV (PCR) - Final Physical Exam Const alert, oriented x3 and no apparent distress Constitutional Narrative: Pleasant upper middle-aged male, class II obesity, mild fatigued appearing, otherwise laying back comfortably in bed, conversing normally, in no acute distress. Stable. General Appearance: cooperative and comfortable HEENT normocephalic, head/scalp atraumatic, hearing grossly normal bilaterally, nasal mucous membranes and turbinates normal and moist oral mucous membranes Eyes PERRL, EOMs intact bilaterally and conjunctivae normal Neck full ROM Chest inspection of chest normal Resp normal respiratory effort, normal air movement, no use of accessory muscles and clear to auscultation bilaterally Cardio no murmurs and peripheral pulses 2+ throughout Cardio Narrative: A-fib with RVR. GI GI Narrative: Mild diffuse tenderness to palpation but abdomen otherwise soft and nondistended. Stable. Back/Spine normal ROM Extremity normal to inspection, full ROM and no pedal edema Skin no rashes or lesions noted Psych mental status grossly normal Assessment & Plan Assessment/Plan (1) Fever: (2) Abdominal pain: (3) Atrial fibrillation with RVR: PLAN: Plan Patient is a 64-year-old male who presented to [facility] ED on 09/18/2024 with fever/chills and abdominal pain. 1. Fever of unknown origin with abdominal pain ? Presented with low-grade fever to 100.7 F on admit and reported fevers at home. WBC count normal, lactate normal, no other concerning lab findings. Unclear source of infection at this time. Chest x-ray unremarkable. CT abdomen pelvis with no concerning findings. UA unremarkable. Stool PCR sample negative. Respiratory PCR panel negative. Blood cultures pending. Will continue to treat with broad-spectrum IV antibiotics for now. 2. New onset A-fib with RVR with concern for new onset heart failure ? Cardiology following. In new onset A-fib with RVR on admit with rate in the 130s to 140s. BNP elevated at 2493. Chest x-ray showed cardiomegaly but no pleural effusions or significant pulmonary edema. Given bolus of IV Cardizem and started on Cardizem drip in the ED without much improvement. [id number] score of 2 for age and diabetes history; per cardiology, would benefit from long-term anticoagulation for stroke prevention so patient initiated on Eliquis. Per cardiology, initiated on IV digoxin and will plan to uptitrate p.o. Lopressor and wean off Cardizem drip as able. Echo pending. If patient remains in A-fib over the weekend, will tentatively plan for LISA/DCCV on Sunday. Continue cardiac telemetry. 3. Class II obesity ? BMI 35 on admit. Complicates hospital course, care and prognosis. 4. New onset mild type 2 diabetes mellitus ? A1c 6.9% on admit. Glucose 145. Will hold on glucose checks and insulin orders for now. Will need close outpatient follow-up. DVT prophylaxis: Not indicated, on Eliquis CODE STATUS: Full code, verified Expected disposition: Home, TBD Total clinical time spent by myself addressing the patient's medical issues, reviewing all the data, and collaborating with patient's care team: 35 minutes. Charges/Coding Visit Charges Inpatient E&M: 14193 Subs Hosp L2
[2024-09-19] MEDS: Dicyclomine 10 MG Capsule PO (18:38)
[2024-09-19] MEDS: Vancomycin Trough/Random Due 1 LAB MC (19:30)
[2024-09-19 20:24] LABS: Vancomycin, Trough Level 14.6 ug/mL (5.0-15.0)
--- NOTE | 2024-09-19 20:41 | PCM.RX.CS ---
Consult Antibiotic Management Pharmacy has been consulted to manage selected antibiotic: Vancomycin Type of Intervention Type of Consult: Follow-up Labs Labs: Sodium 132 mmol/L (133-145) L 09/19/24 04:39 Potassium 3.7 mmol/L (3.3-5.1) 09/19/24 04:39 Chloride 97 mmol/L (98-108) L 09/19/24 04:39 Carbon Dioxide 23.1 mmol/L (21.0-32.0) 09/19/24 04:39 Anion Gap 12 (5-15) 09/19/24 04:39 BUN 15 mg/dL (4-19) 09/19/24 04:39 Creatinine 0.82 mg/dL (0.70-1.20) 09/19/24 04:39 Est GFR (MDRD) Non-Af 98 (>60) 09/19/24 04:39 BUN/Creatinine Ratio 18.2 RATIO (10-20) 09/19/24 04:39 Glucose 147 mg/dL (70-99) H 09/19/24 04:39 Vancomycin Trough 14.6 ug/mL (5.0-15.0) 09/19/24 19:30 Microbiology Microbiology: Microbiology 09/18/24 21:30 Stool Enteric Bacteriology - Final 09/18/24 12:21 Mucosa - Nose SARS-CoV-2, Influenza & RSV (PCR) - Final Goal Trough Goal Trough: 15-20 mcg/mL Pharmacy Plan for Drug Dosing Pharmacy Plan for Drug Dosing: VANCOMYCIN LEVEL RECEIVED Current Vancomycin Dose: 1250mg IV Q8h Number of Doses Received: 2 (of scheduled regimen) Vancomycin Level: 14.6 Hours Since Last Dose: 6hr Renal Function: 0.82 Renal Function Trend: stable Lab/Micro: pending Vancomycin Plan/Comments: patient had a trough drawn which resulted in a value of 14.6 (goal 15-20). patient is just slightly below trough goal. Patient is already on an every 8hr regimen, am hesitant to increase dose based on how close to trough goal and age. Will continue current dose and recheck a trough in 3 more doses. If still subtherapeutic at that time, will likely increase dose at that time. Pending Level: 09/20/24 @1930 Pharmacy Service will continue to monitor and adjust dosing as required.
[2024-09-20] VITALS (38 sets, daily range): BP systolic 116–156; BP diastolic 69–102; PULSE 92–126; RESP 14–27; TEMP 36.9–37.2; O2SAT 89–100; BMI 34.9
[2024-09-20] MEDS: Vancomycin HCl 1,250 MG in 0.9% Normal Saline (250mL Bag) 250 ML 167 MG IV ×3 (03:56→20:48)
[2024-09-20] MEDS: Piperacil/Tazobactam 3.375 GM in 0.9% Normal Saline (50mL MB+) 50 ML IV ×3 (05:15→22:29)
[2024-09-20] MEDS: 0.9% Normal Saline (250mL Bag) 250 ML 15 ML IV (05:16)
[2024-09-20] MEDS: Diltiazem 125 MG in Dextrose 5%-Water (100mL Bag) 100 ML 15 MG IV (07:50)
--- NOTE | 2024-09-20 07:58 | CT_ITS ---
PROCEDURE: ABDOMEN/PEL W ORAL CONT ONLY 09/20/2024 REASON FOR EXAM: CONTINUED ABD PAIN W/ FEVERS, UNCLEAR CAUSE TECHNIQUE: ABDOMEN/PEL W ORAL CONT ONLY Noncontrast technique limits evaluation of the abdominal and pelvic viscera. Coronal and Sagittal reconstruction series were provided. One or more dose reduction techniques were used (e.g., Automated exposure control, adjustment of the mA and/or kV according to patient size, use of iterative reconstruction technique). ORAL CONTRAST TYPE: 900 mL COMPARISON: 09/18/2024 FINDINGS: Limited sections of the lung bases demonstrate no focal pulmonary mass. Bibasilar consolidations concerning for multifocal pneumonia, aspiration, and/or atelectasis. There may be mild underlying interstitial edema. Trace bibasilar pleural effusions. Trace pericardial effusion. The liver, spleen, pancreas, both kidneys, and both adrenal glands demonstrate no acute findings. Nonspecific mild bilateral perinephric stranding. 1.3 cm cyst within the right kidney. Hepatomegaly to 21.6 cm. Trace hepatic steatosis. The gallbladder is unremarkable. The stomach is unremarkable. The aorta and IVC demonstrate no acute findings. Mild atherosclerosis of the abdominal vasculature. There is no free air, free fluid or intestinal obstruction. The small bowel loops are not dilated. The appendix is not clearly identified, although there are no secondary signs of appendicitis. No bowel obstruction. Colonic diverticulosis without acute diverticulitis. The pelvic structures are intact. Cluster of inflamed mesenteric lymph nodes within the left hemiabdomen best seen on series 2, image 93 and series 601.2, image 51. Calcification within prostate. The urinary bladder is partially distended. Visualized osseous structures demonstrate no acute abnormalities. [id number] multilevel degenerative changes of the lumbar spine most prominent at L2-L3. Mild fat containing right inguinal hernia. CT/Abdomen/Pel W ORAL Cont Only IMPRESSION: Bibasilar consolidations concerning for multifocal pneumonia, aspiration, and/o r atelectasis. There may be mild underlying interstitial edema. Trace bibasilar pleural effusions. Cluster of inflamed mesenteric lymph nodes within the left hemiabdomen best see n on series 2, image 93 and series 601.2, image 51. Findings may be reactive although neoplastic or infectious process is not excluded. No bowel obstruction or infection. Reading Location: [id number]
[2024-09-20] MEDS: Mag Hydrox/Al Hydrox/Simeth 30 ML UDC 15 ML PO ×2 (08:12→22:29)
[2024-09-20 08:21] LABS: Hematocrit 41.9 % (40-54); Hemoglobin 14.6 g/dL (13.0-16.5); Mean Corp Hgb Conc 34.8 g/dL (32-36); Mean Corpuscular Volume 83.1 fL (80-94); Mean Platelet Vol. 9.4 fl (6.2-12.0); Platelet Count 215 K/mm3 (150-450); RBC Distribution Width CV 13.5 % (11.6-14.6); RBC Distribution Width SD 40.9 fl (35.1-43.9); Red Blood Count 5.04 M/mm3 (4.6-6.2); White Blood Count 11.2 K/mm3 (4.4-11.0)
[2024-09-20 09:26] LABS: Anion Gap 12 (5-15); BUN 15 mg/dL (4-19); BUN/Creat Ratio 14.6 RATIO (10-20); Carbon Dioxide 22.2 mmol/L (21.0-32.0); Chloride 98 mmol/L (98-108); Creatinine, Serum 1.05 mg/dL (0.70-1.20); EST Glomerular Filtration Rate 79 (>60); Estimated Creatinine Clearance 84.62 ml/min (50-250); Glucose 168 mg/dL (70-99); Potassium 3.6 mmol/L (3.3-5.1); Sodium Level 133 mmol/L (133-145)
[2024-09-20] MEDS: Metoprolol Tartrate 25 MG Tablet PO ×2 (09:28→12:13)
[2024-09-20] MEDS: APIXABAN 5 MG TABLET PO (09:29)
--- NOTE | 2024-09-20 10:09 | PCM.PN.HOSP ---
Reason for Visit Reason for Visit: Diagnoses Type 2 diabetes mellitus without complications (09/18/24) Unspecified atrial fibrillation (09/18/24) Unspecified abdominal pain (09/18/24) Fever, unspecified (09/18/24) Subjective Subjective Saw patient at bedside this morning, family present. Patient appeared similar this morning to previous days. Continued to appear fatigued and continued to report abdominal discomfort with gas pains. Stated the Bentyl and Mylanta were somewhat helpful for the pain. Remains in A-fib with RVR with rate in the 110s. Continues to deny palpitations. No other new concerns today. Objective Data Objective Data Vital Signs: Vital Signs Temp Pulse Resp BP Pulse Ox O2 Del Method O2 Flow Rate 99 F 117 H 26 H 145/92 H 95 Nasal Cannula 2 09/20/24 03:00 09/20/24 09:28 09/20/24 07:00 09/20/24 07:00 09/20/24 08:45 09/20/24 08:45 09/20/24 08:45 Oxygen Flow Rate (L/min) 2 Oxygen Delivery Method Nasal Cannula Weight: 107.2 kg Body Mass Index (BMI) 34.9 Intake & Output: Intake and Output for Last 24 Hours 09/18/24 09/19/24 09/20/24 23:59 23:59 23:59 Intake Total 1665.00 / 1878.75 2475.50 / 2586.25 960.25 / 960.25 Output Total 1100 / 1100 Balance 1665.00 / 1378.75 1375.50 / 1486.25 960.25 / 960.25 Lab / Micro Data 09/20/24 08:02 09/20/24 08:02 Labs: Laboratory Results - last 24 hr 09/19/24 19:30: Vancomycin Trough 14.6 09/20/24 08:02: WBC 11.2 H, RBC 5.04, Hgb 14.6, Hct 41.9, MCV 83.1, MCH 29.0, MCHC 34.8, RDW Std Deviation 40.9, RDW Coeff of Abel 13.5, Plt Count 215, MPV 9.4, Sodium 133, Potassium 3.6, Chloride 98, Carbon Dioxide 22.2, Anion Gap 12, BUN 15, Creatinine 1.05, Estim Creat Clear Calc 84.62, Est GFR (MDRD) Non-Af 79, BUN/Creatinine Ratio 14.6, Glucose 168 H, Calcium 8.0 Micro: Microbiology 09/18/24 21:30 Stool Enteric Bacteriology - Final 09/18/24 12:21 Mucosa - Nose SARS-CoV-2, Influenza & RSV (PCR) - Final Radiography Diagnostic Testing: Radiology Impression Echocardiogram 09/18/24 13:58 Interpretation Summary Left ventricular systolic function 35% This is limited due to atrial fibrillation Left ventricle appears dilated The left atrium is dilated Mild (1+) mitral valve insufficiency. Mild tricuspid valve insufficiency. Aortic valve is mildly calcified Ordering Physician: James Crum Referring Physician: Andi Blanton Performed By: Isabel Griffin RVT, RDCS and Student Physical Exam Const alert, oriented x3 and no apparent distress Constitutional Narrative: Pleasant upper middle-aged male, class II obesity, mild fatigued appearing, otherwise laying back comfortably in bed, conversing normally, in no acute distress. Stable. General Appearance: cooperative and comfortable HEENT normocephalic, head/scalp atraumatic, hearing grossly normal bilaterally, nasal mucous membranes and turbinates normal and moist oral mucous membranes Eyes PERRL, EOMs intact bilaterally and conjunctivae normal Neck full ROM Chest inspection of chest normal Resp normal respiratory effort, normal air movement, no use of accessory muscles and clear to auscultation bilaterally Cardio no murmurs and peripheral pulses 2+ throughout Cardio Narrative: A-fib with RVR. GI GI Narrative: Mild diffuse tenderness to palpation but abdomen otherwise soft and nondistended. Stable. Back/Spine normal ROM Extremity normal to inspection, full ROM and no pedal edema Skin no rashes or lesions noted Psych mental status grossly normal Assessment & Plan Assessment/Plan (1) Fever: (2) Abdominal pain: (3) Atrial fibrillation with RVR: PLAN: Plan Patient is a 64-year-old male who presented to [facility] ED on 09/18/2024 with fever/chills and abdominal pain. 1. Fever of unknown origin with abdominal pain ? Presented with low-grade fever to 100.7 F on admit and reported fevers at home. WBC count normal, lactate normal, no other concerning lab findings. Chest x-ray unremarkable. CT abdomen pelvis with IV contrast with no concerning findings. UA unremarkable. Stool PCR sample negative. Respiratory PCR panel negative. Blood cultures pending. Continued to have abdominal pain so CT abdomen pelvis with oral contrast was obtained on 09/20 that showed a cluster of inflamed mesenteric lymph nodes within the left hemiabdomen of unclear etiology; infectious or neoplastic process cannot be excluded. GI consulted for further evaluation. Will continue to treat with IV broad-spectrum antibiotics for now. Symptom control with as needed Bentyl and Mylanta. 2. New onset A-fib with RVR with new acute HFrEF ? Cardiology following. In new onset A-fib with RVR on admit with rate in the 130s to 140s. BNP elevated at 2493. Chest x-ray showed cardiomegaly but no pleural effusions or significant pulmonary edema. Given bolus of IV Cardizem and started on Cardizem drip in the ED without much improvement. Echo on 09/18 showed newly reduced EF of 35%, dilated LA, elevated pulmonary pressures, no significant valvular disease. [id number] score of 2 for age and diabetes history. Per cardiology, treating with digoxin and p.o. Lopressor, will wean off Cardizem drip on 09/20. Continue heparin drip for anticoagulation for now. If he remains in A-fib over the weekend, we will tentatively plan for LISA/DCCV but time will be determined based on GI recommendations for further management of above. Can spot dose diuretics as needed. Continue cardiac telemetry. 3. Class II obesity ? BMI 35 on admit. Complicates hospital course, care and prognosis. 4. New onset mild type 2 diabetes mellitus ? A1c 6.9% on admit. Glucose 145. Will hold on glucose checks and insulin orders for now. Will need close outpatient follow-up. DVT prophylaxis: Not indicated, on Eliquis CODE STATUS: Full code, verified Expected disposition: Home, TBD Total clinical time spent by myself addressing the patient's medical issues, reviewing all the data, and collaborating with patient's care team: 35 minutes. Charges/Coding Visit Charges Inpatient E&M: 53592 Subs Hosp L2
--- NOTE | 2024-09-20 10:22 | PN.CARD_ITS ---
Objective Data Continues to complain of abdominal pain. Vital Signs: Vital Signs Temp Pulse Resp BP Pulse Ox O2 Del Method O2 Flow Rate 99 F 117 H 26 H 145/92 H 95 Nasal Cannula 2 09/20/24 03:00 09/20/24 09:28 09/20/24 07:00 09/20/24 07:00 09/20/24 08:45 09/20/24 08:45 09/20/24 08:45 Oxygen Flow Rate (L/min) 2 Oxygen Delivery Method Nasal Cannula Weight: 236 lb 5.369 oz Body Mass Index (BMI) 34.9 Intake & Output: Intake and Output for Last 24 Hours 09/18/24 09/19/24 09/20/24 23:59 23:59 23:59 Intake Total 1665.00 / 1878.75 2475.50 / 2586.25 960.25 / 960.25 Output Total 1100 / 1100 Balance 1665.00 / 1378.75 1375.50 / 1486.25 960.25 / 960.25 Lab / Micro Data 09/20/24 08:02 09/20/24 08:02 Labs: Laboratory Results - last 24 hr 09/19/24 19:30: Vancomycin Trough 14.6 09/20/24 08:02: WBC 11.2 H, RBC 5.04, Hgb 14.6, Hct 41.9, MCV 83.1, MCH 29.0, MCHC 34.8, RDW Std Deviation 40.9, RDW Coeff of Abel 13.5, Plt Count 215, MPV 9.4, Sodium 133, Potassium 3.6, Chloride 98, Carbon Dioxide 22.2, Anion Gap 12, BUN 15, Creatinine 1.05, Estim Creat Clear Calc 84.62, Est GFR (MDRD) Non-Af 79, BUN/Creatinine Ratio 14.6, Glucose 168 H, Calcium 8.0 Micro: Microbiology 09/18/24 21:30 Stool Enteric Bacteriology - Final Cardiology Labs/Tests 09/20/24 08:02: WBC 11.2 H, RBC 5.04, Hgb 14.6, Hct 41.9, MCV 83.1, MCH 29.0, MCHC 34.8, Plt Count 215, MPV 9.4, Sodium 133, Potassium 3.6, Chloride 98, Carbon Dioxide 22.2, Anion Gap 12, BUN 15, Creatinine 1.05, Est GFR (MDRD) Non- Af 79, BUN/Creatinine Ratio 14.6, Glucose 168 H, Calcium 8.0 Rhythm: EKG: ECHO: Stress Test: Cardiac Cath: PCI: CT Surgery: Holter monitor: EPS: PPM: CXR: Chest CT Scan: Radiography Diagnostic Testing: Radiology Impression Echocardiogram 09/18/24 13:58 Interpretation Summary Left ventricular systolic function 35% This is limited due to atrial fibrillation Left ventricle appears dilated The left atrium is dilated Mild (1+) mitral valve insufficiency. Mild tricuspid valve insufficiency. Aortic valve is mildly calcified Ordering Physician: James Crum Referring Physician: Andi Blanton Performed By: Isabel Griffin RVT, RDCS and Student Physical Exam Narrative General?alert oriented HEENT- normal extraocular movements Neck supple no JVD Cardiovascular- normal S1-S2, irregular no murmurs Pulmonary- clear to auscultation bilaterally Abdomen-distended Extremities- no edema Musculoskeletal- no tenderness no swelling Neurological -alert oriented Psych -normal affect Assessment & Plan Assessment/Plan (1) Abdominal pain: (2) Atrial fibrillation with RVR: (3) Fever: (4) Diabetes: PLAN: Plan 1. A-fib with RVR this appears to be a new diagnosis for him. Currently [id number] score is 2 for age and diabetes.. His echocardiogram shows decreased LVEF of 35%. Possibly tachycardia mediated versus significant coronary artery disease. Will likely need a left heart cath before discharge. Will aim to discontinue Cardizem. Add digoxin, check digoxin level before morning dose tomorrow. Increase metoprolol p.o. we will switch to succinate given reduced LVEF. Further workup for A-fib would include sleep apnea evaluation as an outpatient . He need to be LISA/DCCV if he does not self convert into normal rhythm. In the meantime we will await further workup from abdominal CT / cause of abdominal pain 2. Cardiomyopathy as mentioned above possibly tachycardia mediated. Workup would include a left heart cath likely before discharge in this hospitalization and then guideline directed medical therapy. Will start with switching metoprolol to succinate pending blood pressures add JAYLIN/ARB. Obtain chest x-ray and BNP today. 3. Diabetes mellitus?per primary team 4. Abdominal pain per primary team
[2024-09-20] MEDS: Furosemide 20 MG/2 ML VIAL IV (10:46)
[2024-09-20] MEDS: Digoxin 250 MCG/ML Ampul IV (10:46)
[2024-09-20] MEDS: 0.9% Saline Lock 10 ML Syringe IV (10:47)
[2024-09-20 11:28] LABS: Partial Thromboplast Time 33.4 Seconds (24.1-36.2)
[2024-09-20] MEDS: Dicyclomine 10 MG Capsule PO (13:17)
[2024-09-20] MEDS: Ondansetron 4 MG/2 ML Vial IV ×2 (13:20→22:29)
--- NOTE | 2024-09-20 13:23 | RAD_ITS ---
PROCEDURE: CHEST 1 VIEW (PORTABLE) 09/20/2024 REASON FOR EXAM: ?CHF TECHNIQUE: Frontal view of the chest. COMPARISON: Chest radiograph 09/18/2024. FINDINGS: Hardware: None. Heart: Stable mild cardiomegaly with pulmonary vascular congestion. Lungs: Mild peribronchial cuffing and septal B-lines. No large pleural effusion or pneumothorax. Bones: Degenerative changes are identified within the thoracic spine. RAD/Chest 1 View (Portable) IMPRESSION: Findings compatible with CHF/volume overload. No acute findings. Reading Location: [id number]
[2024-09-20 14:33] LABS: Pro- Brain NATRIURETIC PEPTIDE 1887 pg/mL (<=900)
[2024-09-20] MEDS: Metoprolol(XL)Succ 100 MG Tablet PO (20:07)
[2024-09-20 20:10] LABS: Vancomycin, Trough Level 19.8 ug/mL (5.0-15.0)
--- NOTE | 2024-09-20 21:55 | PCM.RX.CS ---
Consult Antibiotic Management Pharmacy has been consulted to manage selected antibiotic: Vancomycin Type of Intervention Type of Consult: Follow-up Labs Labs: Sodium 133 mmol/L (133-145) 09/20/24 08:02 Potassium 3.6 mmol/L (3.3-5.1) 09/20/24 08:02 Chloride 98 mmol/L (98-108) 09/20/24 08:02 Carbon Dioxide 22.2 mmol/L (21.0-32.0) 09/20/24 08:02 Anion Gap 12 (5-15) 09/20/24 08:02 BUN 15 mg/dL (4-19) 09/20/24 08:02 Creatinine 1.05 mg/dL (0.70-1.20) 09/20/24 08:02 Est GFR (MDRD) Non-Af 79 (>60) 09/20/24 08:02 BUN/Creatinine Ratio 14.6 RATIO (10-20) 09/20/24 08:02 Glucose 168 mg/dL (70-99) H 09/20/24 08:02 Vancomycin Trough 19.8 ug/mL (5.0-15.0) H 09/20/24 19:35 Microbiology Microbiology: Microbiology 09/18/24 10:48 Blood Culture (Wb) - Right Hand Blood Culture - Preliminary No growth in 48 hours. 09/18/24 10:40 Blood Culture (Wb) - Left Wrist Blood Culture - Preliminary No growth in 48 hours. 09/18/24 21:30 Stool Enteric Bacteriology - Final 09/18/24 12:21 Mucosa - Nose SARS-CoV-2, Influenza & RSV (PCR) - Final Goal Trough Goal Trough: 15-20 mcg/mL Pharmacy Plan for Drug Dosing Pharmacy Plan for Drug Dosing: Pharmacy Service will continue to monitor and adjust dosing as required. TROUGH 19.8 @ 7.5 HOURS. NO CHANGES, FOLLOW UP TROUGH IN 1 DAY PER HIGH END TROUGH AND DECREASED CrCl Follow-Up Labs Follow-Up Labs: Trough: Vancomycin Date/Time Labs Ordered Labs to be done on [date and time ordered]: 09/21 @ 1930
--- NOTE | 2024-09-20 22:05 | EX.PCM.CON.G ---
HPI Consult Data Date of Consult: 09/20/24 HPI Narrative Reason for Consultation: Abdominal pain or fever HPI Narrative: GISELA KNOX, is a 64 M who presented to the ED with intermittent fevers progressively worse abdominal pain. He reports that for the past few days he has not been feeling well. Then proceeded to have abdominal pains in his lower right quadrant which were severe at the time so he came to the ER for further evaluation. On arrival to the ER he was found to be in A-fib with RVR. His BNP was noted to be 2400. He was started on medicines for atrial fibrillation and echocardiogram was ordered. His ejection fraction was 35%. His initial CT scan abdomen pelvis on 09/18/2024 displayed : CT/Abdomen/Pelvis WITH Contrast IMPRESSION: Fatty infiltration of the liver. Coronary artery calcification. Small right inguinal hernia containing fat. No evidence of ureteral obstruction. He also had an ultrasound of the right upper quadrant on 09/18/2024 that displayed: US/Gallbladder IMPRESSION: Liver: Diffusely echogenic suggesting fatty infiltration. Hepatomegaly. The liver measures 19.3 cm. Gallbladder: No stones, sludge, wall thickening or tenderness. Common bile duct: Normal measuring 3.8 mm . Pancreas: Normal Other: Visualized portions of the right kidney are unremarkable. No right upper quadrant ascites. His repeat CT scan abdomen pelvis on 09/20/2024 displayed: CT/Abdomen/Pel W ORAL Cont Only IMPRESSION: Bibasilar consolidations concerning for multifocal pneumonia, aspiration, and/or atelectasis. There may be mild underlying interstitial edema. Trace bibasilar pleural effusions. Cluster of inflamed mesenteric lymph nodes within the left hemiabdomen best seen on series 2, image 93 and series 601.2, image 51. Findings may be reactive although neoplastic or infectious process is not excluded. . [facility] Home Medications ?Medication ?Instructions ?Recorded ?Last Taken ?Type aspirin 81 mg tablet,delayed 81 mg PO DAILY preventative 09/18/24 Unknown History release (Adult Low Dose Aspirin) Allergy/AdvReac Type Severity Reaction Status Date / Time No Known Allergies Allergy Verified 09/18/24 10:50 Surgical History History of appendectomy Social History household members: spouse Smoking Status: Never smoker ROS Constitutional Constitutional: Denies fatigue, fever(s), poor appetite, weight gain or weight loss Gastrointestinal Gastrointestinal: Denies belching, bloating, change in bowel habits, change in stool character, chewing difficulty, coffee ground emesis, constipation, cramping, diarrhea, dyspepsia, dysphagia, early satiety, excessive flatus, fecal incontinence, heartburn, hematemesis, hematochezia, hemorrhoids, loose stools, melena, nausea, odynophagia, rectal bleeding, tenesmus, vomiting or weight changes Physical Exam Const alert, oriented x3, no apparent distress and healthy appearing General Appearance: cooperative GI normal to inspection, nondistended, normoactive bowel sounds, soft to palpation, non-tender and non-distended Percussion: normal to percussion Rectal Exam: deferred Lab / Micro Data 09/20/24 08:02 09/20/24 08:02 Labs: Laboratory Results - last 24 hr 09/20/24 08:02: WBC 11.2 H, RBC 5.04, Hgb 14.6, Hct 41.9, MCV 83.1, MCH 29.0, MCHC 34.8, RDW Std Deviation 40.9, RDW Coeff of Abel 13.5, Plt Count 215, MPV 9.4, Sodium 133, Potassium 3.6, Chloride 98, Carbon Dioxide 22.2, Anion Gap 12, BUN 15, Creatinine 1.05, Estim Creat Clear Calc 84.62, Est GFR (MDRD) Non-Af 79, BUN/Creatinine Ratio 14.6, Glucose 168 H, Calcium 8.0, NT pro BNP II 1887 H 09/20/24 11:03: APTT 33.4 09/20/24 19:35: Vancomycin Trough 19.8 H Micro: Microbiology 09/18/24 10:48 Blood Culture (Wb) - Right Hand Blood Culture - Preliminary No growth in 48 hours. 09/18/24 10:40 Blood Culture (Wb) - Left Wrist Blood Culture - Preliminary No growth in 48 hours. Imaging Radiology Impression Abdomen CT 09/20/24 07:58 IMPRESSION: Bibasilar consolidations concerning for multifocal pneumonia, aspiration, and/or atelectasis. There may be mild underlying interstitial edema. Trace bibasilar pleural effusions. Cluster of inflamed mesenteric lymph nodes within the left hemiabdomen best seen on series 2, image 93 and series 601.2, image 51. Findings may be reactive although neoplastic or infectious process is not excluded. No bowel obstruction or infection. Reading Location: [facility] Chest X-Ray 09/20/24 13:23 IMPRESSION: Findings compatible with CHF/volume overload. No acute findings. Reading Location: [id number] Assessment & Plan Assessment/Plan (1) Fever: (2) Abdominal pain: (3) Atrial fibrillation with RVR: PLAN: Plan Patient is a 64-year-old male who presented to [facility] ED on 09/18/2024 with fever/chills and abdominal pain. Fever of unknown origin, abdominal pain, acute CHF and new onset atrial fibrillation ? Differential diagnosis for this does include non inclusive mesenteric ischemia. Less likely occlusive mesenteric ischemia. Fluid congestion can also lead to swelling and discomfort in the abdomen secondary to congestive heart failure. His CT scans of the abdomen pelvis does show some mildly enlarged retroperitoneal lymph nodes without the setting of inflammation in the bowels. You can also get mesenteric lymphadenitis in the setting of congestive heart failure. The mesenteric lymphadenitis could explain his fevers. I do not suspect that his fevers are coming from acute mesenteric ischemia as he is not having hypotension and bloody bowel movements. But I would recommend. - CTA of the abdomen pelvis - Lactic acid level - LDH - ESR and CRP - Avoid medications that cause vasoconstriction to the mesenteric vasculature Charges/Coding Visit Charges Inpatient E&M: 32633 Init Hosp L3
[2024-09-20] MEDS: MELATONIN 3 MG TABLET PO (22:29)
[2024-09-20] MEDS: HEPARIN/D5w 25,000 UNITS 25,000 UNITS/250 ML IV.SOLN. 15 UNITS CONT INF (22:45)
[2024-09-20 23:22] LABS: Erythrocyte Sedimentation Rate 40 mm/hr (0-20)
[2024-09-20 23:41] LABS: Lactic Acid < 1.0 mmol/L (0.0-2.0)
[2024-09-21] VITALS (8 sets, daily range): BP systolic 122–160; BP diastolic 70–93; PULSE 85–117; RESP 14–20; TEMP 36.7–37; O2SAT 93–99; BMI 34.8
[2024-09-21 00:32] LABS: Amylase 41 U/L (28-100); LDH 296 U/L (87-241); Lipase 51 U/L (13-75)
[2024-09-21] MEDS: Vancomycin HCl 1,250 MG in 0.9% Normal Saline (250mL Bag) 250 ML 167 MG IV ×2 (05:21→12:04)
[2024-09-21 06:14] LABS: Hematocrit 40.1 % (40-54); Mean Corp Hgb Conc 34.9 g/dL (32-36); Mean Corpuscular Hgb 29.1 pg (27.0-32.0); Mean Corpuscular Volume 83.4 fL (80-94); Mean Platelet Vol. 9.5 fl (6.2-12.0); Platelet Count 236 K/mm3 (150-450); RBC Distribution Width CV 13.4 % (11.6-14.6); RBC Distribution Width SD 41.1 fl (35.1-43.9); Red Blood Count 4.81 M/mm3 (4.6-6.2); White Blood Count 9.3 K/mm3 (4.4-11.0)
[2024-09-21 06:27] LABS: Partial Thromboplast Time 51.1 Seconds (24.1-36.2)
[2024-09-21] MEDS: HEPARIN/D5w 25,000 UNITS 25,000 UNITS/250 ML IV.SOLN. 16 UNITS CONT INF (06:44)
[2024-09-21] MEDS: Heparin Injection (Vial) 5,000 UNIT/ML VIAL IV ×2 (06:51→13:33)
[2024-09-21 07:07] LABS: Anion Gap 11 (5-15); BUN 26 mg/dL (4-19); BUN/Creat Ratio 18.2 RATIO (10-20); Carbon Dioxide 24.6 mmol/L (21.0-32.0); Chloride 98 mmol/L (98-108); Creatinine, Serum 1.43 mg/dL (0.70-1.20); EST Glomerular Filtration Rate 54 (>60); Estimated Creatinine Clearance 62.08 ml/min (50-250); Glucose 135 mg/dL (70-99); Potassium 3.4 mmol/L (3.3-5.1); Sodium Level 133 mmol/L (133-145)
[2024-09-21 09:45] LABS: Digoxin Level 0.87 ng/mL (0.00-2.00)
[2024-09-21] MEDS: Piperacil/Tazobactam 3.375 GM in 0.9% Normal Saline (50mL MB+) 50 ML IV ×2 (09:53→14:49)
[2024-09-21] MEDS: Dicyclomine 10 MG Capsule PO (09:55)
[2024-09-21] MEDS: Digoxin 250 MCG/ML Ampul IV (09:56)
[2024-09-21] MEDS: Lactated Ringers 1,000 ML 250 ML IV (09:56)
--- NOTE | 2024-09-21 10:41 | PCM.PN.HOSP ---
Reason for Visit Reason for Visit: Diagnoses Type 2 diabetes mellitus without complications (09/18/24) Unspecified atrial fibrillation (09/18/24) Unspecified abdominal pain (09/18/24) Fever, unspecified (09/18/24) Subjective Subjective Saw patient at bedside this morning, present. Patient reports feeling slightly better today compared to previous days. Was sitting up comfortably in bedside chair and in no acute distress. Continues to have some abdominal discomfort with gas pains but this has improved with symptom control. Denies any fevers overnight. No other new concerns this morning. Objective Data Objective Data Vital Signs: Vital Signs Temp Pulse Resp BP Pulse Ox O2 Del Method O2 Flow Rate 98.1 F 100 16 136/92 H 97 Nasal Cannula 2 09/21/24 09:47 09/21/24 09:56 09/21/24 09:47 09/21/24 09:56 09/21/24 09:47 09/21/24 10:00 09/21/24 10:00 Oxygen Flow Rate (L/min) 2 Oxygen Delivery Method Nasal Cannula Weight: 107 kg Body Mass Index (BMI) 34.8 Intake & Output: Intake and Output for Last 24 Hours 09/19/24 09/20/24 09/21/24 23:59 23:59 23:59 Intake Total 2475.50 / 2586.25 2185.25 / 2185.25 444.75 / 444.75 Output Total 1100 / 1100 400 / 400 Balance 1375.50 / 1486.25 2185.25 / 2185.25 44.75 / 44.75 Lab / Micro Data 09/21/24 05:05 09/21/24 05:05 Labs: Laboratory Results - last 24 hr 09/20/24 08:02: NT pro BNP II 1887 H 09/20/24 11:03: APTT 33.4 09/20/24 19:35: Vancomycin Trough 19.8 H 09/20/24 23:00: ESR 40 H, Lactic Acid < 1.0, Lactate Dehydrogenase 296 H, C-React Prot Ext Range 238.00 H, Amylase 41, Lipase 51 09/21/24 05:05: WBC 9.3, RBC 4.81, Hgb 14.0, Hct 40.1, MCV 83.4, MCH 29.1, MCHC 34.9, RDW Std Deviation 41.1, RDW Coeff of Abel 13.4, Plt Count 236, MPV 9.5, APTT 51.1 H, Sodium 133, Potassium 3.4, Chloride 98, Carbon Dioxide 24.6, Anion Gap 11, BUN 26 H, Creatinine 1.43 H, Estim Creat Clear Calc 62.08, Est GFR (MDRD) Non-Af 54 L, BUN/Creatinine Ratio 18.2, Glucose 135 H, Calcium 8.0 09/21/24 07:55: Digoxin 0.87 Micro: Microbiology 09/18/24 10:48 Blood Culture (Wb) - Right Hand Blood Culture - Preliminary No growth in 48 hours. 09/18/24 10:40 Blood Culture (Wb) - Left Wrist Blood Culture - Preliminary No growth in 48 hours. 09/18/24 21:30 Stool Enteric Bacteriology - Final 09/18/24 12:21 Mucosa - Nose SARS-CoV-2, Influenza & RSV (PCR) - Final Radiography Diagnostic Testing: Radiology Impression Abdomen CT 09/20/24 07:58 IMPRESSION: Bibasilar consolidations concerning for multifocal pneumonia, aspiration, and/or atelectasis. There may be mild underlying interstitial edema. Trace bibasilar pleural effusions. Cluster of inflamed mesenteric lymph nodes within the left hemiabdomen best seen on series 2, image 93 and series 601.2, image 51. Findings may be reactive although neoplastic or infectious process is not excluded. No bowel obstruction or infection. Reading Location: [facility] Chest X-Ray 09/20/24 13:23 IMPRESSION: Findings compatible with CHF/volume overload. No acute findings. Reading Location: [facility] Physical Exam Const alert, oriented x3 and no apparent distress Constitutional Narrative: Pleasant upper middle-aged male, class II obesity, mildly fatigued appearing, otherwise laying back comfortably in bed, conversing normally, in no acute distress. Stable. General Appearance: cooperative and comfortable HEENT normocephalic, head/scalp atraumatic, hearing grossly normal bilaterally, nasal mucous membranes and turbinates normal and moist oral mucous membranes Eyes PERRL, EOMs intact bilaterally and conjunctivae normal Neck full ROM Chest inspection of chest normal Resp normal respiratory effort, normal air movement, no use of accessory muscles and clear to auscultation bilaterally Cardio no murmurs and peripheral pulses 2+ throughout Cardio Narrative: A-fib, rate controlled. GI GI Narrative: Mild diffuse tenderness to palpation but abdomen otherwise soft and nondistended. Stable. Back/Spine normal ROM Extremity normal to inspection, full ROM and no pedal edema Skin no rashes or lesions noted Psych mental status grossly normal Assessment & Plan Assessment/Plan (1) Fever: (2) Abdominal pain: (3) Atrial fibrillation with RVR: PLAN: Plan Patient is a 64-year-old male who presented to [facility] ED on 09/18/2024 with fever/chills and abdominal pain. 1. Fever of unknown origin with abdominal pain ? GI following. Presented with low-grade fever to 100.7 F on admit and reported fevers at home. WBC count normal, lactate normal. Chest x-ray unremarkable. CT abdomen pelvis with IV contrast with no concerning findings. UA unremarkable. Stool PCR sample negative. Respiratory PCR panel negative. Continued to have abdominal pain so CT abdomen pelvis with oral contrast was obtained on 09/20 that showed a cluster of inflamed mesenteric lymph nodes within the left hemiabdomen of unclear etiology. Per GI, consistent with mesenteric lymphadenitis. CRP very elevated at 238, ESR and LDH mildly elevated. SPEP, ANITA, TB quantiferon gold, CMV and EBV ordered. IR consulted for evaluation for CT-guided biopsy. Will continue to treat with broad-spectrum antibiotics. Symptom control with as needed Bentyl and Mylanta. 2. New onset A-fib with RVR with new acute HFrEF ? Cardiology following. In new onset A-fib with RVR on admit with rate in the 130s to 140s. BNP elevated at 2493. Chest x-ray showed cardiomegaly but no pleural effusions or significant pulmonary edema. Given bolus of IV Cardizem and started on Cardizem drip in the ED without much improvement. Echo on 09/18 showed newly reduced EF of 35%, dilated LA, elevated pulmonary pressures, no significant valvular disease. [id number] score of 2 for age and diabetes history. Per cardiology, treating with digoxin and p.o. Lopressor, weaning off Cardizem drip as able. Continue heparin drip for anticoagulation for now. Rate has improved but he remains in Afib. Per cardiology, tentatively planning for LISA/DCCV during this admission but time will be determined based on GI recommendations after CT-guided lymph node biopsy. Continue to spot dose diuretics as needed. Continue cardiac telemetry. 3. Class II obesity ? BMI 35 on admit. Complicates hospital course, care and prognosis. 4. New onset mild type 2 diabetes mellitus ? A1c 6.9% on admit. Glucose 145. Will hold on glucose checks and insulin orders for now. Will need close outpatient follow-up. DVT prophylaxis: Not indicated, on Eliquis CODE STATUS: Full code, verified Expected disposition: Home, TBD Total clinical time spent by myself addressing the patient's medical issues, reviewing all the data, and collaborating with patient's care team: 35 minutes. Charges/Coding Visit Charges Inpatient E&M: 05426 Subs Hosp L2
--- NOTE | 2024-09-21 10:56 | PN.CARD_ITS ---
Subjective Subjective feels slightly better today Objective Data Vital Signs: Vital Signs Temp Pulse Resp BP Pulse Ox O2 Del Method O2 Flow Rate 98.1 F 100 16 136/92 H 97 Nasal Cannula 2 09/21/24 09:47 09/21/24 09:56 09/21/24 09:47 09/21/24 09:56 09/21/24 09:47 09/21/24 10:00 09/21/24 10:00 Oxygen Flow Rate (L/min) 2 Oxygen Delivery Method Nasal Cannula Weight: 235 lb 14.314 oz Body Mass Index (BMI) 34.8 Intake & Output: Intake and Output for Last 24 Hours 09/19/24 09/20/24 09/21/24 23:59 23:59 23:59 Intake Total 2475.50 / 2586.25 2185.25 / 2185.25 444.75 / 444.75 Output Total 1100 / 1100 400 / 400 Balance 1375.50 / 1486.25 2185.25 / 2185.25 44.75 / 44.75 Lab / Micro Data 09/21/24 05:05 09/21/24 05:05 Labs: Laboratory Results - last 24 hr 09/20/24 08:02: NT pro BNP II 1887 H 09/20/24 11:03: APTT 33.4 09/20/24 19:35: Vancomycin Trough 19.8 H 09/20/24 23:00: ESR 40 H, Lactic Acid < 1.0, Lactate Dehydrogenase 296 H, C- React Prot Ext Range 238.00 H, Amylase 41, Lipase 51 09/21/24 05:05: WBC 9.3, RBC 4.81, Hgb 14.0, Hct 40.1, MCV 83.4, MCH 29.1, MCHC 34.9, RDW Std Deviation 41.1, RDW Coeff of Abel 13.4, Plt Count 236, MPV 9.5, A PTT 51.1 H, Sodium 133, Potassium 3.4, Chloride 98, Carbon Dioxide 24.6, Anion Gap 11, BUN 26 H, Creatinine 1.43 H, Estim Creat Clear Calc 62.08, Est GFR (MDRD) Non-Af 54 L, BUN/Creatinine Ratio 18.2, Glucose 135 H, Calcium 8.0 09/21/24 07:55: Digoxin 0.87 Micro: Microbiology 09/18/24 10:48 Blood Culture (Wb) - Right Hand Blood Culture - Preliminary No growth in 48 hours. 09/18/24 10:40 Blood Culture (Wb) - Left Wrist Blood Culture - Preliminary No growth in 48 hours. Cardiology Labs/Tests 09/20/24 11:03: APTT 33.4 09/20/24 23:00: Lactic Acid < 1.0 09/21/24 05:05: WBC 9.3, RBC 4.81, Hgb 14.0, Hct 40.1, MCV 83.4, MCH 29.1, MCHC 34.9, Plt Count 236, MPV 9.5, APTT 51.1 H, Sodium 133, Potassium 3.4, Chloride 98, Carbon Dioxide 24.6, Anion Gap 11, BUN 26 H, Creatinine 1.43 H, Est GFR (MDRD) Non-Af 54 L, BUN/Creatinine Ratio 18.2, Glucose 135 H, Calcium 8.0 09/21/24 07:55: Digoxin 0.87 Rhythm: EKG: ECHO: Stress Test: Cardiac Cath: PCI: CT Surgery: Holter monitor: EPS: PPM: CXR: Chest CT Scan: Radiography Diagnostic Testing: Radiology Impression Abdomen CT 09/20/24 07:58 IMPRESSION: Bibasilar consolidations concerning for multifocal pneumonia, aspiration, and/or atelectasis. There may be mild underlying interstitial edema. Trace bibasilar pleural effusions. Cluster of inflamed mesenteric lymph nodes within the left hemiabdomen best seen on series 2, image 93 and series 601.2, image 51. Findings may be reactive although neoplastic or infectious process is not excluded. No bowel obstruction or infection. Reading Location: [facility] Chest X-Ray 09/20/24 13:23 IMPRESSION: Findings compatible with CHF/volume overload. No acute findings. Reading Location: [facility] Physical Exam Narrative General?alert oriented HEENT- normal extraocular movements Neck supple no JVD Cardiovascular- normal S1-S2, irregular no murmurs Pulmonary- clear to auscultation bilaterally Abdomen-distended Extremities- no edema Musculoskeletal- no tenderness no swelling Neurological -alert oriented Psych -normal affect Assessment & Plan Assessment/Plan (1) Abdominal pain: (2) Atrial fibrillation with RVR: (3) Fever: (4) Diabetes: PLAN: Plan 1. A-fib with RVR this appears to be a new diagnosis for him. Currently [id number] score is greater than 2. His echocardiogram shows decreased LVEF of 35%. Possibly tachycardia mediated versus significant coronary artery disease. Will likely need a left heart cath before discharge. Now off Cardizem. Digoxin levels acceptable however given renal function which is new we will have to discontinue digoxin. Will plan for LISA/DCCV once diarrhea subsides. Will reassess in the a.m. Heart rate better controlled now in the 110s. Increase metoprolol succinate to 125 mg. 2. Cardiomyopathy as mentioned above possibly tachycardia mediated. Workup would include a left heart cath likely before discharge in this hospitalization and then guideline directed medical therapy. add JAYLIN/ARB when renal function improves. SAM possibly cardiorenal, repeat labs may need lasix iv this afternoon. 3. Diabetes mellitus?per primary team 4. Abdominal/Diarrhea pain per primary team
[2024-09-21 12:27] LABS: Partial Thromboplast Time 48.1 Seconds (24.1-36.2)
[2024-09-21] MEDS: Mag Hydrox/Al Hydrox/Simeth 30 ML UDC 15 ML PO (13:33)
[2024-09-21 16:12] LABS: Anion Gap 14 (5-15); BUN 20 mg/dL (4-19); BUN/Creat Ratio 20.3 RATIO (10-20); Calcium,Total 7.1 mg/dL (7.6-11.0); Chloride 100 mmol/L (98-108); EST Glomerular Filtration Rate 84 (>60); Estimated Creatinine Clearance 88.77 ml/min (50-250); Glucose 123 mg/dL (70-99); Potassium 3.6 mmol/L (3.3-5.1); Sodium Level 133 mmol/L (133-145)
[2024-09-21] MEDS: Doxycycline 100 MG in 0.9% Normal Saline (250mL Bag) 250 ML 250 MG IV ×2 (16:25→21:15)
[2024-09-21] MEDS: HEPARIN/D5w 25,000 UNITS 25,000 UNITS/250 ML IV.SOLN. 17 UNITS CONT INF (16:26)
[2024-09-21] MEDS: Morphine 2 MG/ML Syringe IV ×2 (17:26→21:14)
[2024-09-21 19:34] LABS: Partial Thromboplast Time 91.3 Seconds (24.1-36.2)
[2024-09-21] MEDS: Metoprolol(XL)Succ 25 MG Tablet PO (21:14)
[2024-09-21] MEDS: Metoprolol(XL)Succ 100 MG Tablet PO (21:14)
[2024-09-21] MEDS: 0.9% Saline Lock 10 ML Syringe IV (21:15)
[2024-09-21] MEDS: MELATONIN 3 MG TABLET PO (21:29)
[2024-09-22] VITALS (10 sets, daily range): BP systolic 114–158; BP diastolic 76–93; PULSE 88–112; RESP 16–20; TEMP 36.1–37; O2SAT 92–97; BMI 34.7
[2024-09-22 01:55] LABS: Partial Thromboplast Time 92.7 Seconds (24.1-36.2)
[2024-09-22 04:53] LABS: Hematocrit 39.7 % (40-54); Hemoglobin 13.5 g/dL (13.0-16.5); Mean Corpuscular Hgb 28.3 pg (27.0-32.0); Mean Corpuscular Volume 83.2 fL (80-94); Mean Platelet Vol. 9.4 fl (6.2-12.0); Platelet Count 315 K/mm3 (150-450); RBC Distribution Width CV 13.4 % (11.6-14.6); RBC Distribution Width SD 41.1 fl (35.1-43.9); Red Blood Count 4.77 M/mm3 (4.6-6.2); White Blood Count 8.2 K/mm3 (4.4-11.0)
[2024-09-22 05:36] LABS: Anion Gap 10 (5-15); BUN 27 mg/dL (4-19); BUN/Creat Ratio 15.6 RATIO (10-20); Carbon Dioxide 24.1 mmol/L (21.0-32.0); Chloride 100 mmol/L (98-108); EST Glomerular Filtration Rate 44 (>60); Estimated Creatinine Clearance 52.17 ml/min (50-250); Glucose 133 mg/dL (70-99); Potassium 3.4 mmol/L (3.3-5.1); Sodium Level 135 mmol/L (133-145)
--- NOTE | 2024-09-22 07:18 | PN.CARD_ITS ---
Subjective Subjective Patient seen and evaluated. Appears to be quite stable at this particular time. No major cardiac complaints. Does not feel irregular heartbeat. Objective Data Vital Signs: Vital Signs Temp Pulse Resp BP Pulse Ox O2 Del Method O2 Flow Rate 98.2 F 104 H 20 H 130/76 H 92 Room Air 2 09/22/24 04:44 09/22/24 04:44 09/22/24 04:44 09/22/24 04:44 09/22/24 04:44 09/22/24 04:44 09/21/24 10:00 Oxygen Flow Rate (L/min) 2 Oxygen Delivery Method Room Air Weight: 235 lb 7.259 oz Body Mass Index (BMI) 34.7 Intake & Output: Intake and Output for Last 24 Hours 09/20/24 09/21/24 09/22/24 23:59 23:59 23:59 Intake Total 2185.25 / 2185.25 3307.81 / 3307.81 101.33 / 101.33 Output Total 600 / 600 Balance 2185.25 / 2185.25 2707.81 / 2707.81 101.33 / 101.33 Lab / Micro Data 09/22/24 04:38 09/22/24 04:38 Labs: Laboratory Results - last 24 hr 09/21/24 07:55: Digoxin 0.87 09/21/24 12:10: APTT 48.1 H 09/21/24 15:37: Sodium 133, Potassium 3.6, Chloride 100, Carbon Dioxide 19.0 L, Anion Gap 14, BUN 20 H, Creatinine 1.00, Estim Creat Clear Calc 88.77, Est GFR (MDRD) Non-Af 84, BUN/Creatinine Ratio 20.3 H, Glucose 123 H, Calcium 7.1 L 09/21/24 19:14: APTT 91.3 H* 09/22/24 01:35: APTT 92.7 H* 09/22/24 04:38: WBC 8.2, RBC 4.77, Hgb 13.5, Hct 39.7 L, MCV 83.2, MCH 28.3, MCHC 34.0, RDW Std Deviation 41.1, RDW Coeff of Abel 13.4, Plt Count 315, MPV 9.4, Sodium 135, Potassium 3.4, Chloride 100, Carbon Dioxide 24.1, Anion Gap 10, BUN 27 H, Creatinine 1.70 H, Estim Creat Clear Calc 52.17, Est GFR (MDRD) Non-Af 44 L, BUN/Creatinine Ratio 15.6, Glucose 133 H, Calcium 8.0 Cardiology Labs/Tests 09/21/24 07:55: Digoxin 0.87 09/21/24 12:10: APTT 48.1 H 09/21/24 15:37: Sodium 133, Potassium 3.6, Chloride 100, Carbon Dioxide 19.0 L, Anion Gap 14, BUN 20 H, Creatinine 1.00, Est GFR (MDRD) Non-Af 84, B UN/Creatinine Ratio 20.3 H, Glucose 123 H, Calcium 7.1 L 09/21/24 19:14: APTT 91.3 H* 09/22/24 01:35: APTT 92.7 H* 09/22/24 04:38: WBC 8.2, RBC 4.77, Hgb 13.5, Hct 39.7 L, MCV 83.2, MCH 28.3, MCHC 34.0, Plt Count 315, MPV 9.4, Sodium 135, Potassium 3.4, Chloride 100, Carbon Dioxide 24.1, Anion Gap 10, BUN 27 H, Creatinine 1.70 H, Est GFR (MDRD) Non-Af 44 L, BUN/Creatinine Ratio 15.6, Glucose 133 H, Calcium 8.0 Rhythm: EKG: ECHO: Stress Test: Cardiac Cath: PCI: CT Surgery: Holter monitor: EPS: PPM: CXR: Chest CT Scan: Physical Exam Const alert, oriented x3 and no apparent distress General Appearance: cooperative HEENT hearing grossly normal bilaterally Head and Scalp: atraumatic Eyes EOMs intact bilaterally Neck General: normal visual inspection Chest inspection of chest normal and palpation of chest normal Resp normal respiratory effort Auscultation: clear to auscultation bilaterally Cardio S1 normal heart sound and S2 normal heart sound Jugular Venous Distention: JVD Rhythm: abnormal rhythm irregularly irregular GI normal to inspection, nondistended, normoactive bowel sounds Extremity normal capillary refill and no pedal edema Peripheral Pulses: Yes pulses 2+ throughout and femoral pulses present Skin no rashes or lesions noted Neuro oriented x3 and CN's II-XII intact bilaterally Psych Appearance: grossly normal and appropriate Assessment & Plan Assessment/Plan (1) Abdominal pain: PLAN: This is still under evaluation by the GI service. (2) Atrial fibrillation with RVR: PLAN: Heart rate is better controlled on the intravenous diltiazem and remain on heparin. Patient is also on oral metoprolol. He is apparently scheduled for a GI procedure today and depending on the findings timing as to whether he would undergo LISA and DC cardioversion will be made versus rate control and anticoagulation and eventual cardiac evaluation. (3) Cardiomyopathy: PLAN: He does appear to have a cardiomyopathy. It is not clear whether the above is nonischemic at this time or not. * Will continue with beta-kyle * Will add an JAYLIN inhibitor or ARB as necessary
[2024-09-22] MEDS: Morphine 2 MG/ML Syringe IV ×2 (08:01→21:00)
[2024-09-22] MEDS: 0.9% Saline Lock 10 ML Syringe IV (08:02)
[2024-09-22] MEDS: HEPARIN/D5w 25,000 UNITS 25,000 UNITS/250 ML IV.SOLN. 15 UNITS CONT INF (09:30)
[2024-09-22 09:37] LABS: Partial Thromboplast Time 60.8 Seconds (24.1-36.2)
[2024-09-22] MEDS: Doxycycline 100 MG in 0.9% Normal Saline (250mL Bag) 250 ML 250 MG IV (10:02)
[2024-09-22] MEDS: Ondansetron 4 MG/2 ML Vial IV ×2 (11:26→21:00)
[2024-09-22] MEDS: Lactated Ringers 1,000 ML 100 ML IV (14:26)
[2024-09-22 16:03] LABS: Partial Thromboplast Time 55.7 Seconds (24.1-36.2)
--- NOTE | 2024-09-22 18:19 | PCM.PN.HOSP ---
Reason for Visit Reason for Visit: Diagnoses Type 2 diabetes mellitus without complications (09/18/24) Cardiomyopathy, unspecified (09/18/24) Unspecified atrial fibrillation (09/18/24) Unspecified abdominal pain (09/18/24) Fever, unspecified (09/18/24) Subjective Subjective Patient was seen and examined today, interventional radiology could not perform a lymph node biopsy due to the location of the lymph node, I talked with gastroenterology and they plan on doing an EGD tomorrow, they had planned on doing a colonoscopy but the patient is nauseated and does not think he can drink the prep. Patient still complains of diffuse abdominal pain today. Patient remains in atrial fibrillation today. Patient remains afebrile. I talked briefly with cardiology today and they do not feel the patient should undergo cardioversion at this time, they feel his rate should be controlled, the patient should be anticoagulated and he should be seen as an outpatient by cardiology. Objective Data Objective Data Vital Signs: Vital Signs Temp Pulse Resp BP Pulse Ox O2 Del Method O2 Flow Rate 96.9 F L 103 H 16 155/81 H 94 Nasal Cannula 2 09/22/24 14:17 09/22/24 15:00 09/22/24 14:17 09/22/24 14:17 09/22/24 14:17 09/22/24 14:17 09/22/24 14:17 Oxygen Flow Rate (L/min) 2 Oxygen Delivery Method Nasal Cannula Weight: 106.8 kg Body Mass Index (BMI) 34.7 Intake & Output: Intake and Output for Last 24 Hours 09/20/24 09/21/24 09/22/24 23:59 23:59 23:59 Intake Total 2185.25 / 2185.25 3307.81 / 3307.81 544.78 / 544.78 Output Total 600 / 600 Balance 2185.25 / 2185.25 2707.81 / 2707.81 544.78 / 544.78 Lab / Micro Data 09/22/24 04:38 09/22/24 04:38 Labs: Laboratory Results - last 24 hr 09/21/24 19:14: APTT 91.3 H* 09/22/24 01:35: APTT 92.7 H* 09/22/24 04:38: WBC 8.2, RBC 4.77, Hgb 13.5, Hct 39.7 L, MCV 83.2, MCH 28.3, MCHC 34.0, RDW Std Deviation 41.1, RDW Coeff of Abel 13.4, Plt Count 315, MPV 9.4, Sodium 135, Potassium 3.4, Chloride 100, Carbon Dioxide 24.1, Anion Gap 10, BUN 27 H, Creatinine 1.70 H, Estim Creat Clear Calc 52.17, Est GFR (MDRD) Non-Af 44 L, BUN/Creatinine Ratio 15.6, Glucose 133 H, Calcium 8.0 09/22/24 08:15: APTT 60.8 H 09/22/24 14:39: APTT 55.7 H Micro: Microbiology 09/18/24 10:48 Blood Culture (Wb) - Right Hand Blood Culture - Preliminary No growth in 48 hours. 09/18/24 10:40 Blood Culture (Wb) - Left Wrist Blood Culture - Preliminary No growth in 48 hours. 09/18/24 21:30 Stool Enteric Bacteriology - Final 09/18/24 12:21 Mucosa - Nose SARS-CoV-2, Influenza & RSV (PCR) - Final Physical Exam Const alert and oriented x3 General Appearance: cooperative, well kempt and well developed Orientation / Consciousness: awake, oriented to person, oriented to place and oriented to time HEENT normocephalic, head/scalp atraumatic and moist oral mucous membranes Eyes PERRL, EOMs intact bilaterally and conjunctivae normal Neck supple, no JVD, thyroid normal and no carotid bruits General: trachea midline Resp normal respiratory effort, no retractions, no use of accessory muscles and clear to auscultation bilaterally Auscultation: Negative for rales, rhonchi or wheezes Cardio S1 normal heart sound, S2 normal heart sound, no murmurs, no rub and no gallops Cardio Narrative: Heart rate and rhythm is irregular GI normal to inspection, nondistended, normoactive bowel sounds GI Narrative: Abdomen is diffusely tender to palpation, no rebound tenderness was noted, bowel sounds are present Extremity no clubbing, cyanosis or edema Skin no rashes or lesions noted General Skin Exam: no breakdown Neuro oriented x3, CN's II-XII intact bilaterally, moves all extremities, no focal motor deficits and no sensory deficits noted Sensorium / Orientation: awake and alert Speech: speech normal Psych affect normal Assessment & Plan Assessment/Plan (1) Atrial fibrillation with RVR: PLAN: Plan 1. 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
[2024-09-22] MEDS: Metoprolol(XL)Succ 100 MG Tablet PO (20:59)
[2024-09-22] MEDS: Metoprolol(XL)Succ 25 MG Tablet PO (20:59)
[2024-09-22] MEDS: MELATONIN 3 MG TABLET PO (21:00)
[2024-09-22] MEDS: Pantoprazole Sodium 40 MG in 0.9% Normal Saline (100mL MB+) 100 ML 330 MG IV (21:26)
[2024-09-23] VITALS (9 sets, daily range): BP systolic 146–172; BP diastolic 79–114; PULSE 94–118; RESP 16–18; TEMP 36.7–37.6; O2SAT 91–96; BMI 35.6
[2024-09-23] MEDS: Lactated Ringers 1,000 ML 100 ML IV ×2 (00:56→12:31)
[2024-09-23] MEDS: Acetaminophen 325 MG Tablet 650 MG PO (03:12)
[2024-09-23] MEDS: HEPARIN/D5w 25,000 UNITS 25,000 UNITS/250 ML IV.SOLN. 15 UNITS CONT INF (03:12)
--- NOTE | 2024-09-23 05:55 | EKG12_ITS ---
Test Reason : AM EKG Blood Pressure : */* mmHG Vent. Rate : 99 BPM Atrial Rate : * BPM P-R Int : * ms QRS Dur : 104 ms QT Int : 352 ms P-R-T Axes : * 72 -33 degrees QTcB Int : 451 ms Atrial fibrillation with a competing junctional pacemaker Abnormal QRS-T angle, consider primary T wave abnormality Abnormal ECG When compared with ECG of 18-Sep-2024 10:53, Vent. rate has decreased by 67 bpm Nonspecific T wave abnormality has replaced inverted T waves in Inferior leads Confirmed by REI LIU, HECTOR ([id number]), offline editor BALAJI BRIAN ([id number]) on 09/24/2024 7:24:31 AM Referred By: Confirmed By: HECTOR MINAYA MD
[2024-09-23 06:12] LABS: Absolute Lymphocyte Count 1.46 X10^3/uL (0.83-4.51); Absolute Neutrophil Count 5.1 X10^3/uL (2.0-7.7); Basophil# 0.05 X10^3/uL; Basophil% 0.6 % (0-1); Eosinophil# 0.14 X10^3/uL; Eosinophils% 1.7 % (0-5); Hemoglobin 13.2 g/dL (13.0-16.5); Lymphocyte # 1.46 X10^3/ul (0.83-4.51); Lymphocyte % 18.2 % (19-41); Mean Corp Hgb Conc 34.7 g/dL (32-36); Mean Corpuscular Hgb 28.9 pg (27.0-32.0); Mean Corpuscular Volume 83.2 fL (80-94); Monocyte# 1.17 X10^3/uL; Monocyte% 14.6 % (0-10); NRBC Flagged by Analyzer 0 % (0-5); Neutrophil # 5.12 X10^3/uL (2.7-7.7); Neutrophil % 63.9 % (47-70); POSITIVE MORPHOLOGY YES; Platelet Count 344 K/mm3 (150-450); RBC Distribution Width CV 13.5 % (11.6-14.6); RBC Distribution Width SD 40.9 fl (35.1-43.9); Red Blood Count 4.57 M/mm3 (4.6-6.2)
[2024-09-23 06:23] LABS: Partial Thromboplast Time 69.1 Seconds (24.1-36.2)
--- NOTE | 2024-09-23 06:29 | PN.CARD_ITS ---
Subjective Subjective Patient seen and evaluated. Doing well. He is otherwise asymptomatic. Objective Data Vital Signs: Vital Signs Temp Pulse Resp BP Pulse Ox O2 Del Method O2 Flow Rate 99.7 F H 95 16 150/80 H 96 Nasal Cannula 2 09/23/24 03:00 09/23/24 03:00 09/23/24 03:00 09/23/24 03:00 09/23/24 03:00 09/23/24 03:00 09/23/24 03:00 Oxygen Flow Rate (L/min) 2 Oxygen Delivery Method Nasal Cannula Weight: 241 lb 13.553 oz Body Mass Index (BMI) 35.6 Intake & Output: Intake and Output for Last 24 Hours 09/21/24 09/22/24 09/23/24 23:59 23:59 23:59 Intake Total 3307.81 / 3307.81 644.78 / 644.78 1146 / 1146 Output Total 600 / 600 500 / 500 Balance 2707.81 / 2707.81 644.78 / 144.78 646 / 646 Lab / Micro Data 09/22/24 04:38 09/22/24 04:38 Labs: Laboratory Results - last 24 hr 09/22/24 08:15: APTT 60.8 H 09/22/24 14:39: APTT 55.7 H 09/23/24 05:55: APTT 69.1 H Cardiology Labs/Tests 09/22/24 08:15: APTT 60.8 H 09/22/24 14:39: APTT 55.7 H 09/23/24 05:55: APTT 69.1 H Rhythm: EKG: ECHO: Stress Test: Cardiac Cath: PCI: CT Surgery: Holter monitor: EPS: PPM: CXR: Chest CT Scan: Physical Exam Const alert and oriented x3 General Appearance: cooperative, well kempt and well developed Orientation / Consciousness: awake, oriented to person, oriented to place and oriented to time HEENT normocephalic, head/scalp atraumatic and moist oral mucous membranes Eyes PERRL, EOMs intact bilaterally and conjunctivae normal Neck supple, no JVD, thyroid normal and no carotid bruits General: trachea midline Resp normal respiratory effort, no retractions, no use of accessory muscles and clear to auscultation bilaterally Auscultation: Negative for rales, rhonchi or wheezes Cardio S1 normal heart sound, S2 normal heart sound, no murmurs, no rub and no gallops Rhythm: abnormal rhythm irregularly irregular GI normal to inspection, nondistended, normoactive bowel sounds GI Narrative: Abdomen is diffusely tender to palpation, no rebound tenderness was noted, bowel sounds are present Extremity no clubbing, cyanosis or edema Skin no rashes or lesions noted General Skin Exam: no breakdown Neuro oriented x3, CN's II-XII intact bilaterally, moves all extremities, no focal motor deficits and no sensory deficits noted Sensorium / Orientation: awake and alert Speech: speech normal Psych affect normal Assessment & Plan Assessment/Plan (1) Abdominal pain: PLAN: This is still under evaluation by the GI service. He is scheduled to have an endoscopy today. (2) Atrial fibrillation with RVR: PLAN: Heart rate is better controlled on the oral metoprolol at the twice daily dose. At this time I do not think that he needs to undergo DC cardioversion or LISA cardioversion. Will manage as outpatient and then will schedule elective cardioversion. (3) Cardiomyopathy: PLAN: He does appear to have a cardiomyopathy. It is not clear whether the above is nonischemic at this time or not. * Will continue with beta-kyle * Will add an JAYLIN inhibitor or ARB as necessary
[2024-09-23 06:43] LABS: ALB/GLOB Ratio 0.9 RATIO (0.9-2.4); AST(SGOT) 20 U/L (<=37); Alanine Aminotransfer ALT/SGPT 22 U/L (<=46); Albumin, Serum 2.9 g/dL (3.4-4.8); Alkaline Phosphatase 59 U/L (40-129); Anion Gap 11 (5-15); BUN 27 mg/dL (4-19); BUN/Creat Ratio 15.7 RATIO (10-20); Calcium,Total 7.9 mg/dL (7.6-11.0); Carbon Dioxide 25.6 mmol/L (21.0-32.0); Chloride 102 mmol/L (98-108); Creatinine, Serum 1.72 mg/dL (0.70-1.20); EST Glomerular Filtration Rate 44 (>60); Estimated Creatinine Clearance 52.27 ml/min (50-250); Globulin 3.1 g/dL (2.2-4.2); Glucose 119 mg/dL (70-99); Lipase 70 U/L (13-75); Potassium 3.4 mmol/L (3.3-5.1); Protein, Total 5.9 g/dL (5.9-8.4); Sodium Level 138 mmol/L (133-145); Total Bilirubin 0.38 mg/dL (0.00-1.30)
[2024-09-23 06:51] LABS: Differential Indicated SCAN CRITERIA MET
[2024-09-23 06:52] LABS: Atypical Lymphocyte 1+ %; Differential Comment SCANNED
[2024-09-23] MEDS: Pantoprazole Sodium 40 MG in 0.9% Normal Saline (100mL MB+) 100 ML 330 MG IV (10:04)
--- NOTE | 2024-09-23 15:45 | NURSING ---
REPORT TAKEN BY THIS NURSE FROM FISHING VESSEL MATE MILY. VERIFIED WITH AND ANESTHESIA THAT PATIENT HAS A RUNNING HEPARIN DRIP, AND ELEVATED BP WHICH IS BEING TREATED WITH HYDRALAZINE.PER BOTH MD OK TO PROCEED WITH PROCEDURE.
[2024-09-23] MEDS: hydrALAZINE 20 MG/ML Vial 10 MG IV (15:55)
--- NOTE | 2024-09-23 16:25 | PCM.PN.BLA ---
Progress Note Patient still complains of diffuse abdominal pain and nausea. Physical Exam Const alert, oriented x3, no apparent distress and healthy appearing General Appearance: cooperative GI normal to inspection, nondistended, normoactive bowel sounds, soft to palpation, non-tender and non-distended Percussion: normal to percussion Rectal Exam: deferred Assessment & Plan Assessment/Plan (1) Fever: (2) Abdominal pain: (3) Atrial fibrillation with RVR: PLAN: Plan Patient is a 64-year-old male who presented to [facility] ED on 09/18/2024 with fever/chills and abdominal pain. Fever of unknown origin, abdominal pain, acute CHF and new onset atrial fibrillation ? Differential diagnosis for this does include non inclusive mesenteric ischemia. Less likely occlusive mesenteric ischemia. Fluid congestion can also lead to swelling and discomfort in the abdomen secondary to congestive heart failure. His CT scans of the abdomen pelvis does show some mildly enlarged retroperitoneal lymph nodes without the setting of inflammation in the bowels. You can also get mesenteric lymphadenitis in the setting of congestive heart failure. The mesenteric lymphadenitis could explain his fevers. I do not suspect that his fevers are coming from acute mesenteric ischemia as he is not having hypotension and bloody bowel movements. But I would recommend. - CTA of the abdomen pelvis - Lactic acid level - LDH - ESR and CRP - Avoid medications that cause vasoconstriction to the mesenteric vasculature 09/23/24-patient has been n.p.o. for upper endoscopy. He still has a lot of nausea abdominal pain. He was supposed to have a colonoscopy also due to some lymph nodes that was seen on a CAT scan. However he cannot tolerate a prep at this time. Further recommendation to follow after he undergoes upper endoscopy. Visit Charges Inpatient E&M: [id number] [facility] Hosp L3
[2024-09-23] MEDS: Lactated Ringers 1,000 ML 15 ML IV (16:42)
--- NOTE | 2024-09-23 17:08 | PRE.ANES_ITS ---
ASA Classification* ASA Classification ASA Classification: 3 (Afib with RVR, on metoprolol, controlled. Does not need cardioversion or LISA cardioversion as per cardiology. Also has cardiomyopathy, unsure if ischemic or not) Assessment & Plan Anesthesia* Anesthesia Assessment Anesthesia Assessment: Discussed sedation and/or anesthesia options, risks, benefits, and alternatives with patient/parents/legal guardian/POA. Questions invited. The patient/parents/legal guardian/POA seems to understand and agrees to proceed with anesthesia plan. Reviewed the physical assessment, medical history, allergy history and patient home medications list prior to surgery/procedure/anesthetic and documented any changes. Performed airway and anesthesia risk assessments. Procedural Plan Procedural Plan:: NOT optimized for anesthesia (Patient is ACTIVELY in Afib with RVR. Will need rate control prior to anesthesia ) Anesthesia Type Anesthesia Type: General History Source History Obtained from:: Patient and Chart Anesthesia Focused Assessment* Temperature: 98.3 F Pulse Rate: 104 Blood Pressure: 172/90 Respiratory Rate: 18 Pulse Ox: 93 Oxygen Delivery Method: Nasal Cannula Oxygen Flow Rate (L/min): 2 Airway Assessment Mouth opens: >3 cm Mallampati Score: III Neck Range of motion (ROM): Full ROM Labs Anesthesia Preop lab: CBC WBC 8.0 K/mm3 (4.4-11.0) 09/23/24 05:55 09/23/24 RBC 4.57 M/mm3 (4.6-6.2) L 09/23/24 05:55 09/23/24 Hgb 13.2 g/dL (13.0-16.5) 09/23/24 05:55 09/23/24 Hct 38.0 % (40-54) L 09/23/24 05:55 09/23/24 Plt Count 344 K/mm3 (150-450) 09/23/24 05:55 09/23/24 CHEMISTRY Potassium 3.4 mmol/L (3.3-5.1) 09/23/24 05:55 09/23/24 Sodium 138 mmol/L (133-145) 09/23/24 05:55 09/23/24 Magnesium 2.1 mg/dL (1.5-2.2) 09/18/24 15:00 09/18/24 Phosphorus 2.6 mg/dL (2.7-4.5) L 09/18/24 15:00 09/18/24 BUN 27 mg/dL (4-19) H 09/23/24 05:55 09/23/24 Creatinine 1.72 mg/dL (0.70-1.20) H 09/23/24 05:55 Glucose 119 mg/dL (70-99) H 09/23/24 05:55 09/23/24 COAG Pre-Assessment Diagnosis/Proposed Procedure Planned Operative Procedure(s): EGD - CANCELLED due to Afib w/ RVR Anesthesia History 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 When Was Last Pacemaker Check QUESTION #4 FULL TEXT: You/Your Family Experience fever (hyperthermia) with Anesthesia Last Oral Intake Last Oral intake: Last Oral Intake NPO since 00:00 09/23/24 03:00 Meds taken in AM with sips of water? Meds patient instructed to take am of surgery PONV PONV - automotive product specialist: PONV - automotive product specialist Female HX of Motion Sickness HX of N/V After Surgery Non-Smoker Duration of Surgery greater than 60 minutes Number of Risk Factors PONV Score Height & Weight Height & Weight: Anesthesia: Height & Weight Height 5 ft 9 in 09/23/24 16:25 Weight: 109.7 kg 09/23/24 16:25 Body Mass Index (BMI) 35.6 09/23/24 04:21 Respiratory Assessment Respiratory Assessment - automotive product specialist: Respiratory Tract Infection Hx - automotive product specialist Hx Respiratory Tract Infection STOP Sleep Apnea STOP Sleep Apnea - automotive product specialist: STOP Sleep Apnea - automotive product specialist Hx Hypertension No 09/18/24 18:54 Hx Sleep Apnea No 09/18/24 18:54 CPAP BIPAP Do you snore loudly (louder No 09/18/24 18:54 than talking or can be heard Do you often feel tired/ No 09/18/24 18:54 fatigued/ sleepy during daytime? Has anyone observed you stop No 09/18/24 18:54 breathing during sleep? STOP Results Negative 09/18/24 18:54 QUESTION #5 FULL TEXT : Do you snore loudly (louder than talking or can be heard through closed doors)? 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 Specify any problems Hx of Preganancy in last 3 N/A 09/18/24 18:54 Months Nurse Filling Out Transfusion DSLOAN 09/18/24 18:54 & Questions: Date: 09/18/24 09/18/24 18:54 Time: 18:56 09/18/24 18:54 Patient unable to answer at this time (ie. confused, unrespo /Reproduction History /Reproductive History - automotive product specialist: /Reproductive Hx- automotive product specialist Hx Now Gestational Age (in weeks): EDC: Hx Hx Para Hx Section SAB Active Medications Active Medications: Current Medications Generic Name Dose Route Start Last Admin Trade Name Freq PRN Reason Stop Dose Admin Acetaminophen 650 mg 09/18/24 18:17 09/23/24 03:12 Acetaminophen 325 Mg Tablet PO 650 mg Q6H PRN PRN Administration Pain 1-10 Or Fever>100.7 Dicyclomine HCl 10 mg 09/20/24 13:00 09/23/24 15:37 Dicyclomine 10 Mg Capsule PO Not Given TIDAC WAYNE Heparin Sodium (Porcine) 0 unit 09/20/24 22:00 09/21/24 13:33 Heparin Injection (Vial) 5,000 Unit/Ml Vial IV 1,000 unit UD PRN Administration dose adjustment Protocol Sodium Chloride 250 mls @ 15 mls/hr 09/18/24 18:20 09/20/24 09:17 IV Infused .[id number] PRN Infusion Saline Flush Sodium Chloride 250 mls @ 15 mls/hr 09/18/24 18:20 IV .[id number] PRN Additional IVPB Infusion Heparin Sodium/Dextrose 25,000 units in 250 mls @ 15 mls/hr 09/20/24 22:00 09/23/24 03:12 CONT INF 1,500 units/hr .[id number] WAYNE 15 mls/hr Administration Protocol As Directed Lactated Ringer's 1,000 mls @ 100 mls/hr 09/22/24 13:30 09/23/24 12:31 IV 100 mls/hr .Q10H WAYNE Administration Pantoprazole Sodium 40 mg/ 100 mls @ 330 mls/hr 09/22/24 22:00 09/23/24 10:27 Sodium Chloride IV Infused Q12 WAYNE Infusion Lactated Ringer's 1,000 mls @ 15 mls/hr 09/23/24 16:45 09/23/24 16:42 IV 15 mls/hr .Q48H WAYNE Administration Melatonin 3 mg 09/18/24 18:17 09/22/24 21:00 Melatonin 3 Mg Tablet PO 3 mg QHS PRN PRN Administration INSOMNIA Metoprolol Succinate 25 mg 09/21/24 22:00 09/22/24 20:59 Metoprolol(Xl)Succ 25 Mg Tablet PO 25 mg QHS WAYNE Administration Protocol Metoprolol Succinate 100 mg 09/21/24 22:00 09/22/24 20:59 Metoprolol(Xl)Succ 100 Mg Tablet PO 100 mg QHS WAYNE Administration Morphine Sulfate 2 mg 09/21/24 17:00 09/22/24 21:00 Morphine 2 Mg/Ml Syringe IV 2 mg Q4H PRN PRN Administration Pain Score 6-10 Ondansetron HCl 4 mg 09/18/24 18:17 09/22/24 21:00 Ondansetron 4 Mg/2 Ml Vial IV 4 mg Q8H PRN PRN Administration NAUSEA/VOMITING Sodium Chloride 10 - 40 ml 09/18/24 18:20 09/22/24 08:02 0.9% Saline Lock 10 Ml Syringe IV 20 ml UD PRN Administration SALINE FLUSH PFSH Home Medications ?Medication ?Instructions ?Recorded ?Last Taken ?Type aspirin 81 mg tablet,delayed 81 mg PO DAILY preventati ve 09/18/24 Unknown History release (Adult Low Dose Aspirin) Allergy/AdvReac Type Severity Reaction Status Date / Time No Known Allergies Allergy Verified 09/18/24 10:50 Surgical History History of appendectomy Social History household members: spouse Smoking Status: Never smoker Review of Systems (Anesthesia) ROS Narrative System reviewed and no additional complaints, except as documented. Physical Exam Const alert and oriented x3 Nutritional Appearance: obese Resp normal respiratory effort, normal air movement and clear to auscultation bilaterally Cardio no murmurs and diaphoretic Rhythm: abnormal rhythm irregularly irregular
--- NOTE | 2024-09-23 18:25 | PCM.PN.HOSP ---
Reason for Visit Reason for Visit: Diagnoses Type 2 diabetes mellitus without complications (09/18/24) Cardiomyopathy, unspecified (09/18/24) Unspecified atrial fibrillation (09/18/24) Unspecified abdominal pain (09/18/24) Fever, unspecified (09/18/24) Subjective Subjective Patient was seen and examined today, he was scheduled for an EGD but this was canceled when the anesthesiologist noted he was in atrial fib with what they felt was an uncontrolled heart rate. Patient told me this morning that his abdominal pain has completely resolved, I discussed this with gastroenterology and they do not feel at this time that they need to proceed with an EGD tomorrow. Patient was placed on a diet tonight and he was placed on Eliquis and his heparin drip was discontinued. I also increased the patient's metoprolol to 150 mg at bedtime. Objective Data Objective Data Vital Signs: Vital Signs Temp Pulse Resp BP Pulse Ox O2 Del Method O2 Flow Rate 98.3 F 104 H 18 172/90 H 93 Nasal Cannula 2 09/23/24 17:11 09/23/24 17:11 09/23/24 17:11 09/23/24 17:11 09/23/24 17:11 09/23/24 17:11 09/23/24 17:11 Oxygen Flow Rate (L/min) 2 Oxygen Delivery Method Nasal Cannula Weight: 109.7 kg Body Mass Index (BMI) 35.6 Intake & Output: Intake and Output for Last 24 Hours 09/21/24 09/22/24 09/23/24 23:59 23:59 23:59 Intake Total 3307.81 / 3307.81 644.78 / 644.78 2461.5 / 2461.5 Output Total 600 / 600 1000 / 1000 Balance 2707.81 / 2707.81 644.78 / 144.78 1461.5 / 1461.5 Lab / Micro Data 09/23/24 05:55 09/23/24 05:55 Labs: Laboratory Results - last 24 hr 09/23/24 05:55: WBC 8.0, RBC 4.57 L, Hgb 13.2, Hct 38.0 L, MCV 83.2, MCH 28.9, MCHC 34.7, RDW Std Deviation 40.9, RDW Coeff of Abel 13.5, Plt Count 344, MPV 9.0, Immature Gran % (Auto) 1.000 H, Neut % (Auto) 63.9, Lymph % (Auto) 18.2 L, [place] % (Auto) 14.6 H, Eos % (Auto) 1.7, Baso % (Auto) 0.6, Absolute Neuts (auto) 5.1, Absolute Lymphs (auto) 1.46, Nucleated RBC % 0, Differential Comment SCANNED, Atypical Lymphocytes 1+, APTT 69.1 H, Sodium 138, Potassium 3.4, Chloride 102, Carbon Dioxide 25.6, Anion Gap 11, BUN 27 H, Creatinine 1.72 H, Estim Creat Clear Calc 52.27, Est GFR (MDRD) Non-Af 44 L, BUN/Creatinine Ratio 15.7, Glucose 119 H, Calcium 7.9, Total Bilirubin 0.38, AST 20, ALT 22, Alkaline Phosphatase 59, Total Protein 5.9, Albumin 2.9 L, Globulin 3.1, Albumin/Globulin Ratio 0.9, Lipase 70 Micro: Microbiology 09/18/24 10:48 Blood Culture (Wb) - Right Hand Blood Culture - Final No growth in 5 days. 09/18/24 10:40 Blood Culture (Wb) - Left Wrist Blood Culture - Final No growth in 5 days. 09/18/24 21:30 Stool Enteric Bacteriology - Final 09/18/24 12:21 Mucosa - Nose SARS-CoV-2, Influenza & RSV (PCR) - Final Physical Exam Narrative alert and oriented x3 General Appearance: cooperative, well kempt and well developed Orientation / Consciousness: awake, oriented to person, oriented to place and oriented to time HEENT normocephalic, head/scalp atraumatic and moist oral mucous membranes Eyes PERRL, EOMs intact bilaterally and conjunctivae normal Neck supple, no JVD, thyroid normal and no carotid bruits General: trachea midline Resp normal respiratory effort, no retractions, no use of accessory muscles and clear to auscultation bilaterally Auscultation: Negative for rales, rhonchi or wheezes Cardio S1 normal heart sound, S2 normal heart sound, no murmurs, no rub and no gallops Cardio Narrative: Heart rate and rhythm is irregular GI normal to inspection, nondistended, normoactive bowel sounds GI Narrative: Abdomen-abdomen is soft and nontender Extremity no clubbing, cyanosis or edema Skin no rashes or lesions noted General Skin Exam: no breakdown Neuro oriented x3, CN's II-XII intact bilaterally, moves all extremities, no focal motor deficits and no sensory deficits noted Sensorium / Orientation: awake and alert Speech: speech normal Psych affect normal Assessment & Plan Assessment/Plan (1) Atrial fibrillation with RVR: PLAN: Plan 1. New onset atrial fibrillation with RVR-patient is on rate control medications and Eliquis, he will need follow-up with Dr. Carrillo in the office #2 diffuse abdominal pain-felt to be secondary to mesenteric lymphadenitis, patient is not on any antibiotics at this time and his symptoms have resolved. 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 Carrillo as an outpatient #4 type 2 diabetes-I have decided to place the patient on metformin 500 mg twice a day, he will need follow-up with his PCP regarding his blood sugars, patient's hemoglobin A1c was 6.9 Total clinical time spent by myself addressing the patient's medical issues, reviewing all of his data, and collaborating with patient's care team: 35 minutes Charges/Coding Visit Charges Inpatient E&M: 87256 Subs Hosp L2
[2024-09-23] MEDS: Metoprolol(XL)Succ 50 MG Tablet 150 MG PO (21:27)
[2024-09-23] MEDS: APIXABAN 5 MG TABLET PO (21:27)
[2024-09-24 04:05] VITALS: BP 153/86; PULSE 104; RESP 18; TEMP 37.2; O2SAT 92
[2024-09-24 05:08] VITALS: BMI 35.8
--- NOTE | 2024-09-24 07:38 | PN.CARD_ITS ---
Subjective Subjective Patient seen and evaluated. Doing well from the cardiac standpoint. Here his procedure was deferred yesterday. Objective Data Vital Signs: Vital Signs Temp Pulse Resp BP Pulse Ox O2 Del Method O2 Flow Rate 98.9 F 104 H 18 153/86 H 92 Room Air 2 09/24/24 04:05 09/24/24 04:05 09/24/24 04:05 09/24/24 04:05 09/24/24 04:05 09/24/24 04:05 09/23/24 17:11 Oxygen Flow Rate (L/min) 2 Oxygen Delivery Method Room Air Weight: 242 lb 8.136 oz Body Mass Index (BMI) 35.8 Intake & Output: Intake and Output for Last 24 Hours 09/22/24 09/23/24 09/24/24 23:59 23:59 23:59 Intake Total 644.78 / 644.78 2962.0 / 2962.0 1120 / 1120 Output Total 1000 / 1000 Balance 644.78 / 144.78 1962.0 / 1962.0 1120 / 1120 Lab / Micro Data 09/23/24 05:55 09/23/24 05:55 Micro: Microbiology 09/18/24 10:48 Blood Culture (Wb) - Right Hand Blood Culture - Final No growth in 5 days. 09/18/24 10:40 Blood Culture (Wb) - Left Wrist Blood Culture - Final No growth in 5 days. Cardiology Labs/Tests Rhythm: EKG: ECHO: Stress Test: Cardiac Cath: PCI: CT Surgery: Holter monitor: EPS: PPM: CXR: Chest CT Scan: Physical Exam Const alert and oriented x3 General Appearance: cooperative, well kempt and well developed Orientation / Consciousness: awake, oriented to person, oriented to place and oriented to time HEENT normocephalic, head/scalp atraumatic and moist oral mucous membranes Eyes PERRL, EOMs intact bilaterally and conjunctivae normal Neck supple, no JVD, thyroid normal and no carotid bruits General: trachea midline Resp normal respiratory effort, no retractions, no use of accessory muscles and clear to auscultation bilaterally Auscultation: Negative for rales, rhonchi or wheezes Cardio S1 normal heart sound, S2 normal heart sound, no murmurs, no rub and no gallops Rhythm: abnormal rhythm irregularly irregular GI normal to inspection, nondistended, normoactive bowel sounds GI Narrative: Abdomen is diffusely tender to palpation, no rebound tenderness was noted, bowel sounds are present Extremity no clubbing, cyanosis or edema Skin no rashes or lesions noted General Skin Exam: no breakdown Neuro oriented x3, CN's II-XII intact bilaterally, moves all extremities, no focal motor deficits and no sensory deficits noted Sensorium / Orientation: awake and alert Speech: speech normal Psych affect normal Assessment & Plan Assessment/Plan (1) Abdominal pain: PLAN: This is still under evaluation by the GI service. He is scheduled to have an endoscopy at some point in time (2) Atrial fibrillation with RVR: PLAN: Heart rate is better controlled on the oral metoprolol at the twice daily dose. At this time I do not think that he needs to undergo DC cardioversion or LISA cardioversion. Will manage as outpatient and then will schedule elective cardioversion. Will recommend metoprolol long-acting 100 mg in a.m. and 50 mg in p.m. He will continue his anticoagulation. (3) Cardiomyopathy: PLAN: He does appear to have a cardiomyopathy. It is not clear whether the above is nonischemic at this time or not. * Will continue with beta-kyle * Will add an JAYLIN inhibitor or ARB as necessary
[2024-09-24 07:47] LABS: Partial Thromboplast Time 34.3 Seconds (24.1-36.2)
[2024-09-24 08:38] VITALS: BP 135/80; PULSE 69; RESP 14; TEMP 36.9; O2SAT 93
[2024-09-24] MEDS: APIXABAN 5 MG TABLET PO (08:43)
[2024-09-24] MEDS: Pantoprazole Sodium 40 MG Tablet PO (08:43)
[2024-09-24] MEDS: metFORMIN HCl 500 MG Tablet PO (08:43)
[2024-09-24 08:45] VITALS: PULSE 115
[2024-09-24] MEDS: Metoprolol(XL)Succ 100 MG Tablet PO (08:45)
[2024-09-24 09:07] LABS: Absolute Lymphocyte Count 1.55 X10^3/uL (0.83-4.51); Absolute Neutrophil Count 5.8 X10^3/uL (2.0-7.7); Basophil# 0.05 X10^3/uL; Basophil% 0.6 % (0-1); Eosinophil# 0.11 X10^3/uL; Eosinophils% 1.3 % (0-5); Hematocrit 37.4 % (40-54); Hemoglobin 13.2 g/dL (13.0-16.5); Lymphocyte # 1.55 X10^3/ul (0.83-4.51); Mean Corp Hgb Conc 35.3 g/dL (32-36); Mean Corpuscular Hgb 29.1 pg (27.0-32.0); Mean Corpuscular Volume 82.6 fL (80-94); Mean Platelet Vol. 8.7 fl (6.2-12.0); Monocyte# 1.09 X10^3/uL; Monocyte% 12.6 % (0-10); NRBC Flagged by Analyzer 0 % (0-5); Neutrophil # 5.76 X10^3/uL (2.7-7.7); Neutrophil % 66.7 % (47-70); POSITIVE MORPHOLOGY YES; Platelet Count 358 K/mm3 (150-450); RBC Distribution Width CV 13.4 % (11.6-14.6); RBC Distribution Width SD 40.4 fl (35.1-43.9); Red Blood Count 4.53 M/mm3 (4.6-6.2); White Blood Count 8.6 K/mm3 (4.4-11.0)
[2024-09-24 09:09] LABS: Differential Indicated SCAN CRITERIA MET
[2024-09-24 09:33] LABS: Atypical Lymphocyte 1+ %
[2024-09-24 09:50] LABS: Pro- Brain NATRIURETIC PEPTIDE 5275 pg/mL (<=900)
[2024-09-24 09:51] LABS: Anion Gap 11 (5-15); BUN 24 mg/dL (4-19); Calcium,Total 8.4 mg/dL (7.6-11.0); Carbon Dioxide 26.2 mmol/L (21.0-32.0); Chloride 98 mmol/L (98-108); EST Glomerular Filtration Rate 48 (>60); Estimated Creatinine Clearance 56.26 ml/min (50-250); Glucose 129 mg/dL (70-99); Potassium 3.4 mmol/L (3.3-5.1); Sodium Level 135 mmol/L (133-145)
[2024-09-24] MEDS: Furosemide 20 MG/2 ML VIAL IV (10:27)
[2024-09-24] MEDS: 0.9% Saline Lock 10 ML Syringe IV (10:27)
[2024-09-24 14:55] VITALS: BP 151/91; PULSE 103; RESP 15; TEMP 37; O2SAT 95
--- NOTE | 2024-09-24 15:31 | DCINST_ITS ---
Discharge Instructions DC O2, CPAP, BIPAP needs Home O2 Discharge instructions: No Dressing / Incision Discharge Activity: - (Increase activity as tolerated) Follow Up Care Test Results: Test results from this visit will be discussed in further detail at your follow- up appointment, if applicable. Discharge Plan Admission Admit Date/Time: 09/18/24 13:54 Primary Reason for Your Visit: Abdominal pain Attending Provider: Amber Simons Primary Care Provider: Andi Blanton Consulting Providers: Calderon Carrillo; James Crum; Tesfaye Guadarrama Instructions Patient Instructions: AFib Dc Additional Instructions / Restrictions: DISCHARGE INSTRUCTIONS PLEASE READ *Please take this with you to your next doctors appointment* -You will need to follow-up with cardiology in their office next week, please call the office upon discharge to schedule your hospital follow-up appointment ( [phone]) -You have had several medication additions, you will be on metoprolol succinate 100 mg twice a day -Eliquis was added to your regimen as a blood thinner due to your irregular heart beat. -Due to high blood sugars and evidence of diabetes metformin was also started - Additionally given your abdominal pain you were started on Protonix and is recommended to take this for 30 days -Weigh yourself every day. A sudden weight gain can mean you are retaining fluid. Weigh yourself at the same time of day and in the same kind of clothes. Ideally, weigh yourself first thing in the morning after you empty your bladder, but before you eat breakfast. -Please call your physician if your weight goes up by more than 2 pounds in 1 day or 5 pounds in 1 week. This can be a sign that you are retaining more fluid than you should be. Clues to weight gain include checking your ankles for swelling, or noticing you are short of breath when you lie down -Please limit your sodium intake to less than 3 g/day. Here are tips: Limit canned, dried, packaged, and fast foods. Don't add salt to your food at the table. Season foods with herbs instead of salt when you cook. When you eat out, ask that the patient attendant not add any salt to your dish. Don't eat fried or greasy foods. Be careful of bottled beverages. They can contain a lot of salt -Call 911 right away if you have: -Severe shortness of breath, such that you can't catch your breath even while resting -Severe chest pain that does not resolve with rest or nitroglycerin -[place], foamy mucus with cough and shortness of breath -An ongoing rapid or irregular heartbeat -Passing out or fainting -Stroke symptoms such as sudden numbness or weakness on one side of your face, arm, or leg or sudden confusion, trouble speaking or vision changes -Please call your primary care provider's office upon discharge to schedule a hospital follow up within 1 week. -For any concerning signs or symptoms please call 911 or proceed to the nearest emergency department Discharge Orders/Prescriptions Prescriptions: New Eliquis 5 mg Tablet 5 mg PO BID 30 Days Qty: 60 0RF metformin 500 mg Tablet 500 mg PO BIDCM 30 Days Qty: 60 0RF metoprolol succinate 100 mg Tablet Extended Release 24 Hr 100 mg PO BID 30 Days Qty: 60 0RF pantoprazole 40 mg Tablet,Delayed Release (Dr/Ec) 40 mg PO DAILY 30 Days Qty: 30 0RF Discontinued aspirin [Adult Low Dose Aspirin] 81 mg tablet,delayed release (DR/EC) 81 mg PO DAILY Referrals / Follow Up: Andi Blanton DO [Primary Care Provider] - Within 1 Week Calderon Carrillo MD [Med Staff - Active Staff] - Within 1 Week (-You will need to follow-up with cardiology in their office next week, please call the office upon discharge to schedule your hospital follow-up appointment (ph [phone])) Disposition Disposition (needs filled in before D/C Order can be placed): Home, Self Care
--- NOTE | 2024-09-24 15:35 | PCM.DC.SUM ---
Providers Date of Admission: 09/18/24 Date of Discharge: 09/24/24 Primary Care Physician: Dr. Andi Blanton, Consultations 09/19/24 07:25 Consult: Cardiology Routine Consulting Provider: Calderon Carrillo Reason for Consult: new onset afib w/ rvr EMERGENT Consult: No Notified: Yes Date Notified: 09/19/24 Time Notified: 08:12 Method of Notification: Text 09/20/24 11:36 Consult: Gastroenterology Routine Consulting Provider: [facility] Reason for Consult: persistent abd pain w/ low grade fevers despite broad spectrum abx EMERGENT Consult: No MD Notified: Yes Date Notified: 09/20/24 Time Notified: 12:41 Method of Notification: Text Reason For Visit: NEW ONSET AFIB W/ RVR Diagnosis Discharge Diagnosis (1) Abdominal pain: Status: Acute Code(s): R10.9 - Unspecified abdominal pain (2) Atrial fibrillation with RVR: Status: Acute Code(s): I48.91 - Unspecified atrial fibrillation (3) Cardiomyopathy: Status: Acute Code(s): I42.9 - Cardiomyopathy, unspecified (4) Diabetes: Status: Acute Code(s): E11.9 - Type 2 diabetes mellitus without complications Plan #Mesenteric adenitis #New onset afib RVR #New onset HFrEF/cardiomyopathy #DMII Medications at Discharge Home Medications apixaban 5 mg tablet (Eliquis) 5 mg PO BID 30 days #60 tabs 09/24/24 metformin 500 mg tablet 500 mg PO BIDCM 30 days #60 tabs 09/24/24 metoprolol succinate 100 mg tablet,extended release 24 hr 100 mg PO BID 30 days #60 tabs 09/24/24 pantoprazole 40 mg tablet,delayed release 40 mg PO DAILY 30 days #30 tabs 09/24/24 Hospital Course Summary of Care Provided Minutes Spent on Discharge: 31 Hospital Course: 64 y/o M with history of an appendectomy presented [facility] ED 09/18/2024 with fever/chills and abdominal pain. He is very active on a daily basis but began to develop fevers and chills 5 days prior to presentation. In the ED he was found to be in A-fib with RVR with heart rate in 130s to 140s and febrile with a temperature of 100.7. BNP was elevated at 2493. CT abdomen/pelvis negative. Patient admitted and started on Cardizem drip. Patient was ultimately transition to oral metoprolol and started on Eliquis With overall improvement in his rate that would still intermittently increase that would go back down. Patient was found to have new onset heart failure with an EF of 35% which was felt to likely be rate dependent. Cardiology did follow and adjusted patient's beta-kyle. Patient cleared for discharge from a cardiology perspective with instructions to follow-up in the office. in regards to patient's abdominal pain it was suspected that this was mesenteric lymphadenitis. Abdominal pain improved with supportive care and patient was placed on PPI due to concern there could have been a gastric component. Initial plan was for endoscopy but this was discontinued due to patient being in A-fib, given improvement of his symptoms it was felt that this did not need to be completed acutely. On day of discharge patient reports he has no further abdominal pain, did feel like he was filling up with fluid a little bit earlier as he had received IV fluids but after fluids were turned off and he was given a dose of IV Lasix he reported urinating well and that he no longer felt is overloaded, did not have any desats or shortness of breath, all peripheral in nature, reports he mostly notices around his abdomen. Patient certainly feeling better than he was and was comfortable discharge home, all questions answered. -You will need to follow-up with cardiology in their office next week, please call the office upon discharge to schedule your hospital follow-up appointment ) -You have had several medication additions, you will be on metoprolol succinate 100 mg twice a day -Eliquis was added to your regimen as a blood thinner due to your irregular heart beat. -Due to high blood sugars and evidence of diabetes metformin was also started - Additionally given your abdominal pain you were started on Protonix and is recommended to take this for 30 days -Weigh yourself every day. A sudden weight gain can mean you are retaining fluid. Weigh yourself at the same time of day and in the same kind of clothes. Ideally, weigh yourself first thing in the morning after you empty your bladder, but before you eat breakfast. -Please call your physician if your weight goes up by more than 2 pounds in 1 day or 5 pounds in 1 week. This can be a sign that you are retaining more fluid than you should be. Clues to weight gain include checking your ankles for swelling, or noticing you are short of breath when you lie down -Please limit your sodium intake to less than 3 g/day. Here are tips: Limit canned, dried, packaged, and fast foods. Don't add salt to your food at the table. Season foods with herbs instead of salt when you cook. When you eat out, ask that the body painter not add any salt to your dish. Don't eat fried or greasy foods. Be careful of bottled beverages. They can contain a lot of salt -Call 911 right away if you have: -Severe shortness of breath, such that you can't catch your breath even while resting -Severe chest pain that does not resolve with rest or nitroglycerin -[place], foamy mucus with cough and shortness of breath -An ongoing rapid or irregular heartbeat -Passing out or fainting -Stroke symptoms such as sudden numbness or weakness on one side of your face, arm, or leg or sudden confusion, trouble speaking or vision changes -Please call your primary care provider's office upon discharge to schedule a hospital follow up within 1 week. -For any concerning signs or symptoms please call 911 or proceed to the nearest emergency department Physical Exam Narrative General: Alert, oriented, no apparent distress HEENT: Atraumatic, normocephalic Eyes: Anicteric, normal conjunctiva, extraocular movements grossly intact Neck: Supple Respiratory: Clear to auscultation bilaterally, normal respiratory effort Cardiovascular: Irregularly irregular, transient low-grade tachycardia GI: Soft, nontender, nondistended Extremities: No significant pitting edema in legs but some fullness in stomach Musculoskeletal: Moving all extremities Neuro: No overt focal neurological deficits Skin: No rashes appreciated Psych: Cooperative Weight / BMI Weight Weight: 110 kg Body Mass Index (BMI) 35.8 ABG / Lab / Microbiology Data 09/24/24 08:55 09/24/24 08:55 Laboratory: Laboratory Results - last 24 hr 09/24/24 06:08: APTT 34.3 09/24/24 08:55: WBC 8.6, RBC 4.53 L, Hgb 13.2, Hct 37.4 L, MCV 82.6, MCH 29.1, MCHC 35.3, RDW Std Deviation 40.4, RDW Coeff of Abel 13.4, Plt Count 358, MPV 8.7, Immature Gran % (Auto) 0.800, Neut % (Auto) 66.7, Lymph % (Auto) 18.0 L, [place] % (Auto) 12.6 H, Eos % (Auto) 1.3, Baso % (Auto) 0.6, Absolute Neuts (auto) 5.8, Absolute Lymphs (auto) 1.55, Nucleated RBC % 0, Atypical Lymphocytes 1+, Sodium 135, Potassium 3.4, Chloride 98, Carbon Dioxide 26.2, Anion Gap 11, BUN 24 H, Creatinine 1.60 H, Estim Creat Clear Calc 56.26, Est GFR (MDRD) Non-Af 48 L, BUN/Creatinine Ratio 15.0, Glucose 129 H, Calcium 8.4, NT pro BNP II 5275 H Microbiology: Microbiology 09/18/24 10:48 Blood Culture (Wb) - Right Hand Blood Culture - Final No growth in 5 days. 09/18/24 10:40 Blood Culture (Wb) - Left Wrist Blood Culture - Final No growth in 5 days. 09/18/24 21:30 Stool Enteric Bacteriology - Final 09/18/24 12:21 Mucosa - Nose SARS-CoV-2, Influenza & RSV (PCR) - Final D/C Instructions Discharge Diet: - (-DASH diet, 3000 mg sodium restriction, 2 L fluid restriction) DC O2, CPAP, BIPAP Needs Home O2 Discharge instructions: No Meaningful Use Info Meaningful Use Meaningful Use Diagnoses (Choose all that apply): CHF CHF JAYLIN/ARB ordered at discharge?: No Reason JAYLIN/ARB not ordered?: Worsening renal function Documented LVEF (%): 35 Ischemic Stroke Statin Dosing Therapy Reference: STATIN DOSE THERAPY REFERENCE: * Patients > 75 years receive moderate or high dose statin therapy. * Patients 75 years or YOUNGER should receive HIGH intensity statin dose unless contraindicated. You will be required to document reason for non-treatment if statin daily dose does not meet guidelines. HIGH DOSE STATIN THERAPY DAILY Atorvastatin > than or = to 40 mg Rosuvastatin > than or = to 20 mg Amlodipine + Atorvastatin > than or = to 2.5/40 mg Ezetimibe + Simvastatin 10/80 mg Simvastatin 80mg Discharge Plan Admission Admit Date/Time: 09/18/24 13:54 Primary Reason for Your Visit: Abdominal pain Attending Provider: Amber Simons Primary Care Provider: Andi Blanton Consulting Providers: Calderon Carrillo; James Crum; Tesfaye Guadarrama Instructions Patient Instructions: Daniela Brown Additional Instructions / Restrictions: DISCHARGE INSTRUCTIONS PLEASE READ *Please take this with you to your next doctors appointment* -You will need to follow-up with cardiology in their office next week, please call the office upon discharge to schedule your hospital follow-up appointment ( [phone]) -You have had several medication additions, you will be on metoprolol succinate 100 mg twice a day -Eliquis was added to your regimen as a blood thinner due to your irregular heart beat. -Due to high blood sugars and evidence of diabetes metformin was also started - Additionally given your abdominal pain you were started on Protonix and is recommended to take this for 30 days -Weigh yourself every day. A sudden weight gain can mean you are retaining fluid. Weigh yourself at the same time of day and in the same kind of clothes. Ideally, weigh yourself first thing in the morning after you empty your bladder, but before you eat breakfast. -Please call your physician if your weight goes up by more than 2 pounds in 1 day or 5 pounds in 1 week. This can be a sign that you are retaining more fluid than you should be. Clues to weight gain include checking your ankles for swelling, or noticing you are short of breath when you lie down -Please limit your sodium intake to less than 3 g/day. Here are tips: Limit canned, dried, packaged, and fast foods. Don't add salt to your food at the table. Season foods with herbs instead of salt when you cook. When you eat out, ask that the body painter not add any salt to your dish. Don't eat fried or greasy foods. Be careful of bottled beverages. They can contain a lot of salt -Call 911 right away if you have: -Severe shortness of breath, such that you can't catch your breath even while resting -Severe chest pain that does not resolve with rest or nitroglycerin -[place], foamy mucus with cough and shortness of breath -An ongoing rapid or irregular heartbeat -Passing out or fainting -Stroke symptoms such as sudden numbness or weakness on one side of your face, arm, or leg or sudden confusion, trouble speaking or vision changes -Please call your primary care provider's office upon discharge to schedule a hospital follow up within 1 week. -For any concerning signs or symptoms please call 911 or proceed to the nearest emergency department Discharge Orders/Prescriptions Prescriptions: New Eliquis 5 mg Tablet 5 mg PO BID 30 Days Qty: 60 0RF metformin 500 mg Tablet 500 mg PO BIDCM 30 Days Qty: 60 0RF metoprolol succinate 100 mg Tablet Extended Release 24 Hr 100 mg PO BID 30 Days Qty: 60 0RF pantoprazole 40 mg Tablet,Delayed Release (Dr/Ec) 40 mg PO DAILY 30 Days Qty: 30 0RF Discontinued aspirin [Adult Low Dose Aspirin] 81 mg tablet,delayed release (DR/EC) 81 mg PO DAILY Referrals / Follow Up: Andi Blanton DO [Primary Care Provider] - Within 1 Week GerardoCalderon lama MD [Med Staff - Active Staff] - Within 1 Week (-You will need to follow-up with cardiology in their office next week, please call the office upon discharge to schedule your hospital follow-up appointment (ph [phone])) Disposition Disposition (needs filled in before D/C Order can be placed): Home, Self Care Charges/Coding Visit Charges Inpatient E&M: 78192 Disch Hosp >30min
--- NOTE | 2024-09-24 15:58 | CASEMGMT ---
Patient has order for discharge. Patient discharging on Eliquis. RN CM in to discuss needs at discharge. Eliquis savings card provided to patient. Patient denies needs or help at discharge. Patient had no further questions or concerns.
[2024-09-25 09:08] LABS: Albumin 2.5 g/dL (2.9-4.4); Alpha-1-Globulins 0.4 g/dL (0.0-0.4); Alpha-2-Globulins 1.1 g/dL (0.4-1.0); CMV Acute Antibody IgM < 30.0 AU/mL (0.0-29.9); CMV by PCR Negative (Negative); EBV Acute VCA IgM < 36.0 U/mL (0.0-35.9); EBV Early Antigen IgG <9.0 U/mL (0.0-8.9); EBV Nuclear Antigen IgG < 18.0 U/mL (0.0-17.9); EBV-VCA IgG < 18.0 U/mL (0.0-17.9); Gamma Globulin 1.1 g/dL (0.4-1.8); Immunoglobulin A 328 mg/dL (61-437); Immunoglobulin G 1143 mg/dL (603-1613); Immunoglobulin M 102 mg/dL (20-172); QNTFERON TB Mitogen Value > 10.00 IU/mL (.); QNTFERON TB Nil Value 0.13 IU/mL (.); QNTFERON TB1+ Ag Value 0.15 IU/mL (.); QNTFERON TB2+ Ag Value 0.15 IU/mL (.); QNTIFERON TB Positive Criteria Negative (Negative)
[2024-09-25 16:09] LABS: Lyme IgG P18 Ab Absent (.); Lyme IgG P23 Ab Absent (.); Lyme IgG P28 Ab Absent (.); Lyme IgG P30 Ab Absent (.); Lyme IgG P39 Ab Absent (.); Lyme IgG P41 Ab Present (.); Lyme IgG P45 Ab Absent (.); Lyme IgG P58 Ab Absent (.); Lyme IgG P66 Ab Absent (.); Lyme IgG P93 Ab Absent (.); Lyme IgG WB Interpretation Negative (Negative); Lyme IgM P23 Ab Absent (.); Lyme IgM P39 Ab Absent (.); Lyme IgM P41 Ab Absent (.); Lyme IgM WB Interpretation Negative (Negative)
== END 2024-09-24 16:47 | disposition home or self-care (01) | DRG 310 ==
LOC: ED 13:48 → PCU 17:47
PROVIDERS: Internal Medicine; Internal Medicine Gastroenterology; Admitting Provider Hospitalist; Emergency Provider Emergency Medicine; PCP Family Medicine; Visit Provider Internal Medicine
DX: I48.91 Unspecified atrial fibrillation (principal); I42.9 Cardiomyopathy, unspecified; E11.65 Type 2 diabetes mellitus with hyperglycemia; E66.812 Obesity, class 2; I88.0 Nonspecific mesenteric lymphadenitis; K76.0 Fatty (change of) liver, not elsewhere classified; Z68.35 Body mass index [BMI] 35.0-35.9, adult; R50.9 Fever, unspecified; R10.9 Unspecified abdominal pain; Z79.01 Long term (current) use of anticoagulants; Z79.82 Long term (current) use of aspirin; Z79.899 Other long term (current) drug therapy; Z90.49 Acquired absence of other specified parts of digestive tract
CPT/HCPCS: 36415; 71045; 74176; 74177; 76705; 80048; 80053; 80162; 80202; 81001; 82150; 82784; 83036; 83605; 83615; 83690; 83735; 83880; 84100; 84165; 84484; 85025; 85027; 85652; 85730; 86140; 86334; 86480; 86617; 86645; 86663; 86664; 86665; 87040; 87496; 87506; 87631; 93005; 93306; 94668; 99284; Q9957; Q9967; A4216; C8929; J1938; J2405

== ENCOUNTER → 2024-12-01 | Outpatient (CLI) | payer SELFPAY ==
--- NOTE | 2024-12-01 12:56 | ECHOLC_ITS ---
Reason For Study Reason For Study: CHF Procedure This was a 2D Doppler, Color Flow transthoracic echocardiogram. Exam performed in department. Left Ventricle Normal LV size. Mild concentric left ventricular hypertrophy. The left ventricular ejection fraction is 50 %. No regional wall motion abnormalities noted. Right Ventricle Normal RV size. Atria Normal left atrium. Normal right atrium. Mitral Valve Normal mitral valve. Tricuspid Valve Normal tricuspid valve. Aortic Valve Trisinus/trileaflet aortic valve. Pulmonic Valve Normal pulmonic valve. Great Vessels Normal aortic root. The pulmonary artery is normal size. Inferior vena cava collapse with respiration. Pericardium/Pleural No pericardial effusion. Medication 22 gauge I.V. with prn adaptor inserted into right arm. Diluted definity 2ml given slow IV push to enhance endocardial definition. MMode/2D Measurements & Calculations LVIDd: 5.6 cm IVSd: 1.4 cm LAV(MOD- bp): 62.7 ml LVIDs: 4.0 cm LVPWd: 1.2 cm FS: 29.1 % LAV(MOD- bp) Indexed: 29.6 ml/m2 LAV(MOD- sp2): 61.5 ml LAV(MOD- sp4): 60.0 ml SV(MOD- sp4): 89.2 ml LVAd ap4: 44.2 cm2 LVAd ap2: 37.8 cm2 LVLd ap4: 9.5 cm LVLd ap2: 9.2 cm SI(MOD- sp4): 42.2 ml/m2 EDV(MOD-sp4): 169.5 ml EDV(MOD-sp2): 128.7 ml EDV(sp4-el): 174.3 ml EDV(sp2-el): 131.9 ml LVAs ap4: 27.7 cm2 LVAs ap2: 24.7 cm2 LVLs ap4: 7.8 cm LVLs ap2: 7.9 cm ESV(MOD-sp4): 80.3 ml ESV(MOD-sp2): 65.9 ml ESV(sp4-el): 83.0 ml ESV(sp2-el): 67.5 ml EF(MOD-sp4): 52.6 % EF(MOD-sp2): 48.8 % EF(sp4-el): 52.4 % SV(MOD-sp2): 62.8 ml SV(sp4-el): 91.3 ml LA A4 area: 20.5 cm2 SI(MOD-sp2): 29.7 ml/m2 RA A4 area: 13.0 cm2 ECHO/Echo Limited w/Contrast Interpretation Summary Normal LV size. Mild concentric left ventricular hypertrophy. The left ventricular ejection fraction is 50 %. Contrast injection was performed. Ordering Physician: River Griffin Referring Physician: River Griffin Performed By: Seema Arrington RCS
== END | disposition home or self-care (01) ==
LOC: CVS 12:55
PROVIDERS: PCP Family Medicine; Referring Provider Nurse Practitioner Family; Visit Provider Nurse Practitioner Family
DX: I42.9 Cardiomyopathy, unspecified (principal); I48.91 Unspecified atrial fibrillation; I51.7 Cardiomegaly
CPT/HCPCS: 93308; Q9957; A4216; C8924